=== PATIENT | female | born 1970 ===

== ENCOUNTER 2024-02-08 17:37 | Inpatient (IN) | payer OTHER, SELFPAY ==
--- NOTE | ~2024-02-08 | US_ITS ---
EXAMINATION: US ABDOMEN LIMITED CLINICAL INFORMATION: Right upper quadrant pain. COMPARISON: None available. TECHNIQUE: Real-time imaging of the right upper quadrant abdominal viscera. FINDINGS: PANCREAS: Normal. LIVER: There is a small complex 2.0 cm cyst in the right lobe of the liver just beneath the hemidiaphragm. The liver is normal in size. The liver contour is normal. Parenchymal echogenicity is normal. No concerning solid focal hepatic lesion. There is no intrahepatic biliary duct dilatation seen. GALLBLADDER: The gallbladder is distended measuring over 10.4 cm in length. There is no evidence of stones, sludge, polyps, wall thickening or pericholecystic fluid. Anne's sign is positive. COMMON BILE DUCT: Normal in caliber measuring 0.3 cm in diameter. RIGHT KIDNEY: Normal. No hydronephrosis. No renal calculi or focal parenchymal lesions. The kidney measures 10.7 cm in maximum dimension. FREE FLUID: None. US/US abdomen limited IMPRESSION: Distended gallbladder with positive Anne's sign. No stones are seen. If acalculous cholecystitis is suspected, a HIDA scan may be useful for further evaluation.
[2024-02-08 17:52] VITALS: BP 152/71; PULSE 68; RESP 20; TEMP 37; O2SAT 98; BMI 26.0
--- NOTE | 2024-02-08 17:52 | ED_ITS ---
HPI - General Adult General Chief complaint: Abdominal Pain Stated complaint: abdominal & back pain Time Seen by Provider: 02/08/24 18:28 Source: patient, RN notes reviewed and old records reviewed Mode of arrival: ambulatory Limitations: no limitations History of Present Illness ED Provider: Camden PANDYA narrative: 53-year-old female presents for evaluation of right upper quadrant abdominal pain. Patient reports that she had mild abdominal pain last night Her pain worsened this morning and prior to coming in was 10/10, sharp, stabbing The pain radiates around to her back. She is associated nausea and vomiting. Denies any fevers, chills, cough, shortness of breath pain Denies any lower abdominal pain burning with urination or blood in the urine Patient denies any history abdominal surgery Related Data Allergies Allergy/AdvReac Type Severity Reaction Status Date / Time shellfish derived AdvReac Vomiting Verified 02/08/24 17:55 Review of Systems 2 Constitutional: Constitutional: Denies body ache(s), Denies chills and Denies fever(s) ENT: Denies sore throat Cardiovascular: Cardiovascular: Denies chest pain and Denies dyspnea Respiratory: Respiratory: Denies cough and Denies dyspnea Gastrointestinal: Gastrointestinal: Reports abdominal pain, Reports nausea and Reports vomiting Genitourinary: Genitourinary: Denies hematuria, Denies urinary frequency and Denies difficulty voiding Musculoskeletal: Musculoskeletal: Reports back pain Integumentary/Breasts: Skin/Breast: Denies rash PMFSH Social History Social History Advance Directives: No Advance Directives Information Provided: Yes Do you have a plan to hurt others: No Plan Physical Exam ED Vital Signs: Vital Signs - 24 hr 02/08/24 17:52 02/08/24 19:20 Temperature 98.6 F 98.6 F Pulse Rate 68 Respiratory Rate 20 18 Blood Pressure 152/71 H 135/69 Pulse Oximetry 98 98 Oxygen Delivery Method Room Air Room Air BMI result Body Mass Index 26.0 Const General: healthy appearing, comfortable, no acute distress, alert and awake Nutritional Appearance: well nourished Orientation/consciousness: patient oriented x3 HENMT Head: Yes normocephalic and Yes atraumatic Eyes Eyelids: Yes eyelids normal Conjunctivae: conjunctivae normal Sclerae: sclerae normal Corneas: corneas normal Pupils: Equal, round and reactive pupils present EOM: EOMs intact bilaterally Neck Neck: Yes full ROM Resp Effort & Inspection: normal respiratory effort, able to speak in complete sentences and not labored Cardio Rate: regular rate Rhythm: regular rhythm GI Inspection: No distended Palpation (GI): Soft to palpation, not firm, Tenderness to palpation present (GI) in the RUQ, Guarding due to palpation present (GI) (With rebound to the right upper quadrant) in the RUQ and not rigid Skin General skin exam: elasticity normal Neuro General: patient oriented x3 Cranial nerves: Yes Equal, round and reactive pupils present and Yes Bilaterally intact EOM present Cognition (Neuro): normal cognition Extrem Other: Moving all extremities well without any obvious deformities Course Course Course Narrative: This is a rapid medical exam performed by Igor Smith NP: Additional HPI, ROS, PE not included below will be deferred to primary provider. Patient is a 53-year-old female presenting to the ED with complaint of severe RUQ abdominal pain radiating to back since last night, worsening today. Nausea, vomiting and diarrhea. Denies prior abdominal surgeries. Plan: labs, ultrasound Medications Administered Discontinued Medications Generic Name Dose Route Start Last Admin Trade Name Freq PRN Reason Stop Dose Admin Sodium Chloride 1,000 mls @ 999 mls/hr 02/08/24 19:30 02/08/24 19:53 Ns IV 02/08/24 20:30 999 mls/hr .[id number] JEREMY Administration Ketorolac Tromethamine 30 mg 02/08/24 17:54 02/08/24 18:03 Ketorolac Tromethamine 30 Mg/Ml Vial IM 02/08/24 17:55 30 mg ONCE ONE Administration Morphine Sulfate 4 mg 02/08/24 20:23 02/08/24 20:35 Morphine Sulfate 4 Mg/Ml Cartridge IVPUSH 02/08/24 20:24 4 mg ONCE ONE Administration Protocol Ondansetron HCl 4 mg 02/08/24 17:54 02/08/24 18:03 Ondansetron Odt 4 Mg Tab.Rapdis TRANSLINGU 02/08/24 17:55 4 mg ONCE ONE Administration Ondansetron HCl 4 mg 02/08/24 20:23 02/08/24 20:35 Ondansetron Hcl 4 Mg/2 Ml Vial IVPUSH 02/08/24 20:24 4 mg ONCE ONE Administration Medical Decision Making Medical Decision Making MDM Narrative: 53-year-old female presents for evaluation of right upper abdominal pain. She denies any medical history. She denies any previous surgical history. Given her right upper quadrant abdominal pain with radiation to the back, associated nausea vomiting, gallbladder disease versus pancreatitis is favored to be the most likely diagnosis. Plan for labs, ultrasound of the abdomen. We will consider CT scan if the ultrasound is unremarkable. Obstructive uropathy is favored to be less likely at this time as the patient has no symptoms Differential Diagnosis Differential Diagnoses: The differential diagnosis associated with the presentation includes Biliary colic Cholelithiasis Acute cholecystitis Pancreatitis Obstructive uropathy Abdominal pain SBO Bowel perforation Admission/Observation Consideration of admission/observation: Escalation of care including admission/observation considered Consider admission for possible acalculous cholecystitis Consult Healthcare Provider Management of the patient was discussed with: Corporate Law Specialist (Discussed with Dr. Díaz who recommends hospitalist admission) Lab Data [facility] Lab Attestation statement: I reviewed the patient's lab results. No leukocytosis or anemia. Normal platelet count. No electrolyte abnormalities. LFTs within normal limits 02/08/24 18:03 02/08/24 18:02 Labs: Lab Results 02/08/24 02/08/24 Range/Units 18:02 18:03 WBC 8.7 (4.8-10.8) X10*3/uL RBC 4.32 (4.20-5.50) X10*6/uL Hgb 12.9 (12.0-16.0) g/dl Hct 37.8 (37.0-47.0) % MCV 87.5 (80.0-98.0) fL MCH 29.9 (27.0-33.0) pg MCHC 34.1 (31.0-35.0) g/dl RDW 12.4 (11.0-16.0) % Plt Count 172 (160-400) X10*3/uL MPV 11.8 (9.4-12.3) fL Immature Gran % (Auto) 0.3 (0.0-0.4) % Neut % (Auto) 71.4 (45-73) % Lymph % (Auto) 20.1 (20-40) % [place] % (Auto) 6.2 (2-11) % Eos % (Auto) 1.5 (0-4) % Baso % (Auto) 0.5 (0-2) % Lymph # (Auto) 1.7 (1.2-4.9) X10*3/uL [place] # (Auto) 0.5 (0.1-1.2) X10*3/uL Eos # (Auto) 0.1 (0.0-0.4) X10*3/uL Baso # (Auto) 0.0 (0.0-0.2) X10*3/uL Abs Immat Gran (auto) 0.03 (0.00-0.03) X10*3/uL Absolute Neuts (auto) 6.2 (2.0-8.3) x10*3/uL Absolute Nucleated RBC 0.000 (0.0-0.012) X10*3/uL Nucleated RBC % (auto) 0.0 (0.0-0.2) /100WBC Sodium 140 (135-145) mmol/L Potassium 3.5 (3.3-5.1) mmol/L Chloride 106 (96-108) mmol/L Carbon Dioxide 22 (22-29) mmol/L Anion Gap 16 (12-20) BUN 13 (9-16) mg/dL Creatinine 0.75 (0.5-1.4) mg/dL Estim Creat Clear Calc 76.4 Estimated GFR > 60 Random Glucose 126 H (60-115) mg/dL Calcium 9.4 (8.4-10.2) mg/dL Total Bilirubin 0.3 (0.0-1.0) mg/dL AST 15 (5-31) U/L ALT 11 (0-31) U/L Alkaline Phosphatase 69 (39-117) U/L Total Protein 7.4 (6.5-8.0) g/dL Albumin 4.3 (3.5-5.0) g/dL Amylase 48 (28-100) U/L Lipase 25 (8-78) U/L Radiology Impression Discussion of test interpretation with radiology: I have reviewed the radiologist's reading. Radiologist Impression: IMPRESSION: Distended gallbladder with positive Anne's sign. No stones are seen. If acalculous cholecystitis is suspected, a HIDA scan may be useful for further evaluation. Discharge Plan Discharge Clinical Impression: Abdominal pain Patient Disposition: Admitted As Inpatient Print Language: Cameroonian
[2024-02-08] MEDS: Ketorolac Tromethamine 30 MG/ML VIAL IM (18:03)
[2024-02-08] MEDS: Ondansetron ODT 4 MG TAB.RAPDIS TRANSLINGU (18:03)
[2024-02-08 18:13] LABS: MANUAL DIFF FLAG NO
[2024-02-08 18:14] LABS: Basophils Percent Auto 0.5 % (0-2); Eosinophils Absolute Auto 0.1 X10*3/uL (0.0-0.4); Eosinophils Percent Auto 1.5 % (0-4); Hematocrit 37.8 % (37.0-47.0); Hemoglobin 12.9 g/dl (12.0-16.0); Imm Gran Abs Auto 0.03 X10*3/uL (0.00-0.03); Imm Gran Pct Auto 0.3 % (0.0-0.4); Lymphocytes Absolute Auto 1.7 X10*3/uL (1.2-4.9); Lymphocytes Percent Auto 20.1 % (20-40); Mean Corpuscular HGB Conc 34.1 g/dl (31.0-35.0); Mean Corpuscular Hemoglobin 29.9 pg (27.0-33.0); Mean Corpuscular Volume 87.5 fL (80.0-98.0); Mean Platelet Volume 11.8 fL (9.4-12.3); Monocytes Absolute Auto 0.5 X10*3/uL (0.1-1.2); Monocytes Percent Auto 6.2 % (2-11); Neutrophils Absolute Auto 6.2 x10*3/uL (2.0-8.3); Neutrophils Percent Auto 71.4 % (45-73); Platelet Count 172 X10*3/uL (160-400); Red Blood Count 4.32 X10*6/uL (4.20-5.50); Red Cell Distribution Width 12.4 % (11.0-16.0); White Blood Count 8.7 X10*3/uL (4.8-10.8)
[2024-02-08 18:29] LABS: Alanine Aminotransferase 11 U/L (0-31); Albumin Level 4.3 g/dL (3.5-5.0); Alkaline Phosphatase 69 U/L (39-117); Amylase 48 U/L (28-100); Anion Gap 16 (12-20); Aspartate Amino Transferase 15 U/L (5-31); Bilirubin Total 0.3 mg/dL (0.0-1.0); Blood Urea Nitrogen 13 mg/dL (9-16); Calcium 9.4 mg/dL (8.4-10.2); Carbon Dioxide 22 mmol/L (22-29); Chloride 106 mmol/L (96-108); Creatinine Clr Calc Pharmacy 76.4; Estimated Glomerular Filt Rate > 60; Glucose Random 126 mg/dL (60-115); Lipase 25 U/L (8-78); Potassium 3.5 mmol/L (3.3-5.1); Sodium 140 mmol/L (135-145); Total Protein 7.4 g/dL (6.5-8.0)
[2024-02-08 19:20] VITALS: BP 135/69; RESP 18; TEMP 37; O2SAT 98
--- NOTE | 2024-02-08 19:22 | MHC.EDTECH ---
This tech took over care of patient at 1900,hourly rounds and vitals completed,attempted to get a UACC patient is unable to at this time,call ray in reach
[2024-02-08] MEDS: 0.9 % Sodium Chloride 1,000 ML 999 ML IV (19:53)
[2024-02-08] MEDS: Morphine Sulfate 4 MG/ML CARTRIDGE IVPUSH (20:35)
[2024-02-08] MEDS: ondansetron HCL 4 MG/2 ML VIAL IVPUSH (20:35)
[2024-02-08 21:37] VITALS: BP 125/57; PULSE 65; RESP 18; TEMP 37; O2SAT 98
--- NOTE | 2024-02-08 21:40 | MHC.EDTECH ---
Hourly rounds and vitals completed, belongings list completed and copy placed in chart.
--- NOTE | 2024-02-08 21:43 | P.HPHOSP_ITS ---
History of Present Illness Date of Service: 02/08/24 Attending physician on admission: Joseph Patterson Chief Complaint: RUQ pain Mary Ann Ley is a 53 years old woman with no significant past medical history presents to the emergency department complaining of severe right upper quadrant abdominal pain that started today few hours after eating lunch. She described as a stabbing sensation radiating to the back. She stated that pain started last night but it was not severe. Associated symptoms she reported nausea, vomiting and diarrhea. She noted that her urine was dark did not report pain with urination. She denied quantify fever but complained of chills which she attributes to vomiting. Patient denied alcohol abuse (had just one beer around lunch time). Denied tobacco smoking or illicit drug use. She denies history abdominal surgeries. Had a D&C. In the ED, she was found to have normal vital signs. Blood workup including CBC with differential, CMP, lipase and amylase are normal. UA is not available. Abdominal ultrasound showed distended gallbladder with positive Anne's sigh without gallstones. ED tx: NS 1 L bolus, Zofran 4 mg IV Toradol 30 mg IM, morphine 4 mg IV and Zosyn 3.375 g IV Review of Systems 2 Review of Systems: All 12 systems were reviewed and normal except as noted in HPI. PMFSH Social History Advance Directives: No Advance Directives Information Provided: Yes Do you have a plan to hurt others: No Plan Meds Allergies Allergy/AdvReac Type Severity Reaction Status Date / Time shellfish derived AdvReac Vomiting Verified 02/08/24 17:55 Active Medications: Current Medications Acetaminophen (Acetaminophen 325 Mg Tablet) 975 mg PO ONCE PRN PRN Reason: mild pain, headache or fever Piperacillin Sod/Tazobactam (Sod 3.375 gm/ Sodium Chloride) 50 mls @ 100 mls/hr IV Q6H JEREMY Lactated Ringer's (Lr) 1,000 mls @ 80 mls/hr IVCONT .[id number] JEREMY Ketorolac Tromethamine (Ketorolac Tromethamine 15 Mg/Ml Vial) 15 mg IVPUSH Q6H PRN PRN Reason: Pain, Moderate(Pain Scale 4-6) Morphine Sulfate (Morphine Sulfate 4 Mg/Ml Cartridge) 4 mg IVPUSH Q4H PRN; Protocol PRN Reason: Pain, Severe (Pain Scale 7-10) Sodium Chloride (0.9 % Sodium Chloride Flush 3 Ml Syringe) 3 ml IVFLUSH QSHIFT [facility] Physical Exam 2 Vital Signs and Narrative: Vital Signs: Last Vital Signs Temp 98.6 F 02/08/24 21:37 Pulse 65 02/08/24 21:37 Resp 18 02/08/24 21:37 BP 125/57 L 02/08/24 21:37 Pulse Ox 98 02/08/24 21:37 O2 Del Method Room Air 02/08/24 21:37 BMI result Body Mass Index 26.0 Constitutional - Awake and Alert, No apparent distress. Pleasant and cooperative. Afebrile. HEENT - Pupils equally round. Normal sclera. Heart - S1S2, RRR. Lungs - Normal lung expansion, Normal respiratory effort, No respiratory distress, CTA bilaterally Abdomen - Nondistended. Increased bowel sounds. Right upper quadrant tenderness with guarding. No rebound. Extremities - no calf tenderness bilaterally, no swelling Skin - Warm/Dry Neurological - Alert & oriented x3. No focal weakness grossly noted. Normal speech. Psychological - Appropriate affect Results Labs 02/08/24 18:03 02/08/24 18:02 Labs: Laboratory Results - last 24 hr 02/08/24 02/08/24 18:02 18:03 MCV 87.5 MCH 29.9 MCHC 34.1 RDW 12.4 Plt Count 172 MPV 11.8 Immature Gran % (Auto) 0.3 Neut % (Auto) 71.4 Lymph % (Auto) 20.1 [place] % (Auto) 6.2 Eos % (Auto) 1.5 Baso % (Auto) 0.5 Lymph # (Auto) 1.7 [place] # (Auto) 0.5 Eos # (Auto) 0.1 Baso # (Auto) 0.0 Abs Immat Gran (auto) 0.03 Absolute Neuts (auto) 6.2 Absolute Nucleated RBC 0.000 Nucleated RBC % (auto) 0.0 Anion Gap 16 Estim Creat Clear Calc 76.4 Estimated GFR > 60 Random Glucose 126 H Calcium 9.4 Total Bilirubin 0.3 AST 15 ALT 11 Alkaline Phosphatase 69 Total Protein 7.4 Albumin 4.3 Amylase 48 Lipase 25 Imaging Radiologist's Impressions: Impressions Abdomen Ultrasound 02/08/24 18:57 IMPRESSION: Distended gallbladder with positive Anne's sign. No stones are seen. If acalculous cholecystitis is suspected, a HIDA scan may be useful for further evaluation. Assessment and Plan (1) RUQ pain: Status: Acute (2) Biliary colic: Status: Acute Plan Mary Ann Ley is a 53 y/o woman admitted with: * RUQ pain. Likely biliary colic. ?Acalculus cholecystitis. No sepsis/SIRS criteria. Admit to hospitalist service. Keep NPO. Obtain blood cultures X2. Check urinalysis. Start IV fluids. Continue empiric IV antibiotic therapy with Zosyn. Pain control with Toradol IV and/or morphine IV. HIDA scan. Recheck labs in the morning. Surgery consult for further recommendations. Quality Stroke Does the patient have a stroke diagnosis?: No VTE Prior VTE?: No VTE Risk Level:: Medical - low VTE Device Contraindication: Treatment Not Indicated VTE Drug Contraindication: Treatment Not Indicated
--- NOTE | 2024-02-08 22:11 | PC.NURSE ---
blood cultures drawn by phlebotomy at this time. delay in abx administration d/t awaiting lab draw.
[2024-02-08] MEDS: Piperacillin Sodium/Tazobactam 3.375 GM in 0.9 % Sodium Chloride 50 ML IV (22:18)
--- NOTE | 2024-02-08 22:19 | MHC.EDTECH ---
Urine sample obtained and sent to lab.
[2024-02-08 22:35] LABS: Appearance Urine Clear; Color Urine Yellow; Glucose Urine UA Negative (Negative); Leukocyte Esterase Urine Negative (Negative); Nitrite Urine Negative (Negative); Specific Gravity - Urine 1.025 (1.005-1.025); Urine Blood Negative (Negative); Urine Ketones 15 mg/dL (Negative); Urine Protein Negative (Neg-Trace)
[2024-02-09 03:45] VITALS: BP 147/56; PULSE 62; RESP 16; TEMP 36.6; O2SAT 99
--- NOTE | 2024-02-09 04:02 | MHC.EDTECH ---
This tech took over care of patient at 0310,patient ambulated to the bathroom with a steady gait,hourly rounds and vitals completed.
[2024-02-09 05:45] LABS: MANUAL DIFF FLAG NO
[2024-02-09 05:51] LABS: Basophils Percent Auto 0.3 % (0-2); Eosinophils Absolute Auto 0.1 X10*3/uL (0.0-0.4); Eosinophils Percent Auto 1.2 % (0-4); Hematocrit 34.1 % (37.0-47.0); Hemoglobin 11.3 g/dl (12.0-16.0); Imm Gran Abs Auto 0.02 X10*3/uL (0.00-0.03); Imm Gran Pct Auto 0.3 % (0.0-0.4); Lymphocytes Absolute Auto 1.8 X10*3/uL (1.2-4.9); Lymphocytes Percent Auto 29.6 % (20-40); Mean Corpuscular HGB Conc 33.1 g/dl (31.0-35.0); Mean Corpuscular Hemoglobin 29.6 pg (27.0-33.0); Mean Corpuscular Volume 89.3 fL (80.0-98.0); Mean Platelet Volume 12.8 fL (9.4-12.3); Monocytes Absolute Auto 0.4 X10*3/uL (0.1-1.2); Monocytes Percent Auto 6.9 % (2-11); Neutrophils Absolute Auto 3.7 x10*3/uL (2.0-8.3); Neutrophils Percent Auto 61.7 % (45-73); Platelet Count 128 X10*3/uL (160-400); Red Blood Count 3.82 X10*6/uL (4.20-5.50); Red Cell Distribution Width 12.5 % (11.0-16.0); White Blood Count 6.1 X10*3/uL (4.8-10.8)
[2024-02-09 06:11] LABS: Alanine Aminotransferase 12 U/L (0-31); Albumin Level 3.7 g/dL (3.5-5.0); Alkaline Phosphatase 60 U/L (39-117); Anion Gap 10 (12-20); Aspartate Amino Transferase 17 U/L (5-31); Bilirubin Total 0.2 mg/dL (0.0-1.0); Blood Urea Nitrogen 11 mg/dL (9-16); Calcium 8.3 mg/dL (8.4-10.2); Carbon Dioxide 23 mmol/L (22-29); Chloride 109 mmol/L (96-108); Creatinine Clr Calc Pharmacy 88.1; Estimated Glomerular Filt Rate > 60; Glucose Random 99 mg/dL (60-115); Lipase 15 U/L (8-78); Potassium 3.3 mmol/L (3.3-5.1); Sodium 139 mmol/L (135-145); Total Protein 6.2 g/dL (6.5-8.0)
[2024-02-09] MEDS: Piperacillin Sodium/Tazobactam 3.375 GM in 0.9 % Sodium Chloride 50 ML IV (06:19)
--- NOTE | 2024-02-09 06:24 | PC.NURSE ---
pt medicated per mar, denies pain, resting comfortably in bed, call ray within reach.
--- NOTE | 2024-02-09 07:18 | PM.CNGS ---
History of Present Illness Consult details Consult date: 02/09/24 Narrative: Patient is an otherwise healthy 53-year-old female who presents with a proximally 1-2 day history of progressively worsening epigastric/right upper quadrant pain radiating around to her back. Because of progression of symptoms, she presented emergency department for further evaluation. Workup including sonogram demonstrated positive Anne sign but no obvious cholelithiasis. Patient has never had such symptoms before. Otherwise she tolerates a diet and has regular bowel habits. Patient has never been jaundiced before. Chart was reviewed and patient evaluated. On exam today, patient states that she has complete resolution of her symptoms. [facility] Social History Social History Patient Tobacco Use Status: Never used Tobacco Smoked in Last 30 Days: No Use of substances other than those prescribed or required for medical reasons: No Advance Directives: No Advance Directives Information Provided: Yes Do you have a plan to hurt others: No Plan Nutrition Risks: No Nutritional Risk Meds Allergies Allergy/AdvReac Type Severity Reaction Status Date / Time shellfish derived AdvReac Vomiting Verified 02/08/24 17:55 Active Medications: Current Medications Acetaminophen (Acetaminophen 325 Mg Tablet) 975 mg PO Q6H PRN PRN Reason: mild pain, headache or fever Piperacillin Sod/Tazobactam (Sod 3.375 gm/ Sodium Chloride) 50 mls @ 100 mls/hr IV Q6H [facility] Last Admin: 02/09/24 06:19 Dose: 100 mls/hr Lactated Ringer's (Lr) 1,000 mls @ 80 mls/hr IVCONT .[id number] [facility] Ketorolac Tromethamine (Ketorolac Tromethamine 15 Mg/Ml Vial) 15 mg IVPUSH Q6H PRN PRN Reason: Pain, Moderate(Pain Scale 4-6) Morphine Sulfate (Morphine Sulfate 4 Mg/Ml Cartridge) 4 mg IVPUSH Q4H PRN; Protocol PRN Reason: Pain, Severe (Pain Scale 7-10) Ondansetron HCl (Ondansetron Hcl 4 Mg/2 Ml Vial) 4 mg IVPUSH Q6H PRN PRN Reason: Nausea and Vomiting Sodium Chloride (0.9 % Sodium Chloride Flush 3 Ml Syringe) 3 ml IVFLUSH QSHIFT [facility] Last Admin: 02/09/24 00:00 Dose: 3 ml Home Medications ?Medication ?Instructions ?Recorded ?Confirmed ?Last Taken ?Type conj estrogen-medroxyprogesterone 1 tab PO BEDTIME 02/09/24 02/09/24 02/07/24 History 0.45 mg-1.5 mg tablet (Prempro) Physical Exam Vital Signs: Vital Signs: Last Vital Signs Temp 97.9 F 02/09/24 03:45 Pulse 62 02/09/24 03:45 Resp 16 02/09/24 03:45 BP 147/56 H 02/09/24 03:45 Pulse Ox 99 02/09/24 03:45 O2 Del Method Room Air 02/09/24 03:45 BMI result Body Mass Index 26.0 GI: Other: Abdomen mildly corpulent. No evidence of any guarding, rebound, or rigidity. No right upper quadrant tenderness or Anne sign. Results Labs 02/09/24 04:39 02/09/24 04:39 Labs: Abnormal lab results 02/08/24 02/09/24 Range/Units 18:02 04:39 RBC 3.82 L (4.20-5.50) X10*6/uL Hgb 11.3 L (12.0-16.0) g/dl Hct 34.1 L (37.0-47.0) % Plt Count 128 L D (160-400) X10*3/uL MPV 12.8 H (9.4-12.3) fL Chloride 109 H (96-108) mmol/L Anion Gap 10 L (12-20) Random Glucose 126 H (60-115) mg/dL Calcium 8.3 L D (8.4-10.2) mg/dL Total Protein 6.2 L (6.5-8.0) g/dL Short CBC 02/08/24 02/09/24 Range/Units 18:03 04:39 WBC 8.7 6.1 (4.8-10.8) X10*3/uL Hgb 12.9 11.3 L (12.0-16.0) g/dl Hct 37.8 34.1 L (37.0-47.0) % Plt Count 172 128 L D (160-400) X10*3/uL BMP 02/08/24 02/09/24 18:02 04:39 Sodium 140 139 Potassium 3.5 3.3 Chloride 106 109 H Carbon Dioxide 22 23 BUN 13 11 Creatinine 0.75 0.65 Calcium 9.4 8.3 L D Liver Function 02/08/24 02/09/24 Range/Units 18:02 04:39 Total Bilirubin 0.3 0.2 (0.0-1.0) mg/dL AST 15 17 (5-31) U/L ALT 11 12 (0-31) U/L Alkaline Phosphatase 69 60 (39-117) U/L Albumin 4.3 3.7 (3.5-5.0) g/dL Urine 02/08/24 Range/Units 22:16 Urine Color Yellow Urine Appearance Clear Urine pH 7.0 (5.0-9.0) Ur Specific [place] 1.025 (1.005-1.025) Urine Protein Negative (Neg-Trace) mg/dL Urine Glucose (UA) Negative (Negative) mg/dL All other labs normal. Assessment and Plan (1) Biliary colic: Status: Acute (2) RUQ pain: Status: Acute Plan Patient's symptomatology is consistent with biliary colic. Ultrasound may not always demonstrate cholelithiasis. Based on patient is currently being asymptomatic, diet can be advanced and patient can be seen as an outpatient for further evaluation and workup. This was reviewed with the patient and she agrees with the plan. Patient has a HIDA scan scheduled for today. To discuss with hospitalist. Procedures Date of Service Date of Service: 02/09/24
[2024-02-09] MEDS: Lactated Ringers 1,000 ML 80 ML IVCONT (08:03)
[2024-02-09] MEDS: 0.9 % Sodium Chloride Flush 3 ML SYRINGE IVFLUSH ×2 (08:04)
--- NOTE | 2024-02-09 08:40 | PHA.MEDREC ---
Pharmacy Consult ? Medication Reconciliation Pharmacy has completed the medication reconciliation.
--- NOTE | 2024-02-09 09:55 | MHC.CM.PN ---
Addendum entered by Mary Mendez 02/09/24 10:13: HCP COMPLETED AND NOW ON FILE Original Note: PT REPORTS SHE LIVES AT HOME WITH HER AND IS INDEPENDENT WITH CARE SHE HAS NO DME AND NO SERVICES PT WILL COMPLETE A HCP TODAY NAMING HER , JEF, AND SISTER, JASMYN DELCID, HER AGENTS PCP: JULIAN BAL IN [facility] DCP: HOME VIA PRIVATE TRANSPORT
--- NOTE | 2024-02-09 11:08 | PC.NURSE ---
Per MD patient given po food/ fluids , patient tolerated well, reports no pain
--- NOTE | 2024-02-09 11:19 | PM.DS ---
DS: Providers Provider Date of Service: 02/09/24 Date of admission: 02/08/24 21:36 Date of discharge: 02/09/24 Primary care physician: Unknown Physician Consults: 02/08/24 21:39 Consult to General Surgery Routine Consulting Provider: [facility] [place] General Surgeons Reason for consultation: RUQ pain, ?acalculus cholecystitis Has provider been notified: Yes Attending physician on discharge: Fiordaliza Bowers Discharging clinician: Fiordaliza Bowers DS: Diagnosis Discharge Diagnosis (1) Biliary colic: Status: Acute (2) RUQ pain: Status: Acute DS: Summary Hospital Course Hospital Course: 53 years old woman with no significant past medical history presents to the emergency department complaining of severe right upper quadrant abdominal pain that started today few hours after eating lunch. She described as a stabbing sensation radiating to the back. She stated that pain started last night but it was not severe. Associated symptoms she reported nausea, vomiting and diarrhea. She noted that her urine was dark did not report pain with urination. She denied quantify fever but complained of chills which she attributes to vomiting. Patient denied alcohol abuse (had just one beer around lunch time). Denied tobacco smoking or illicit drug use. She denies history abdominal surgeries. Had a D&C. In the ED, she was found to have normal vital signs. Blood workup including CBC with differential, CMP, lipase and amylase are normal. UA is not available. Abdominal ultrasound showed distended gallbladder with positive Anne's sigh without gallstones. ED tx: NS 1 L bolus, Zofran 4 mg IV Toradol 30 mg IM, morphine 4 mg IV and Zosyn 3.375 g IV. Hospital course: Patient was admitted for right upper quadrant pain: No leukocytosis, fever, blood cultures sent and pending, abdominal sono reviewed with surgery(please see us report below in imaging section) patient placed NPO, hydration,iv pain meds ,antibiotics : Patient is currently asymptomatic afterwards with supportive care. No fever or leukocytes or no new symptoms. Discussed with the surgery currently recommended to start diet which she is tolerated well, surgery will follow-up out patiently for workup and further management .defer antibiotics since patient asymptomatic. plan: surgery will follow-up out patiently for workup and further management (for bilary colic). Assessment and plan coordination time spent 40 minute. She understand and in agreement with the above plan. Time Attestation Total time managing care of this patient today: 40 mintues. Discharge Coordination Time (in mins): 40 min Quality: Safe Use of Opioids Does Pt have an Active Cancer Diagnosis on the Problem List?: No Quality: Stroke Does the patient have a stroke diagnosis?: No Physical Exam Vital Signs: Vital Signs: Last Vital Signs Temp 97.9 F 02/09/24 03:45 Pulse 62 02/09/24 03:45 Resp 16 02/09/24 03:45 BP 147/56 H 02/09/24 03:45 Pulse Ox 99 02/09/24 03:45 O2 Del Method Room Air 02/09/24 03:45 BMI result Body Mass Index 26.0 Appearance: Alert.? Oriented X3.? cvs: rrr, [id number] , no murmur res: clear to auscultation ,no rhonchii or wheezing abd: no rebound or guarding ,nt, bs present. ext pulses present , no cyanosis . neuro: axo3 , nonfocal. DS: Data Data Completed and Pending Labs on day of discharge: Laboratory Results - last 24 hr 02/08/24 02/08/24 02/08/24 18:02 18:03 22:16 WBC 8.7 RBC 4.32 Hgb 12.9 Hct 37.8 MCV 87.5 MCH 29.9 MCHC 34.1 RDW 12.4 Plt Count 172 MPV 11.8 Immature Gran % (Auto) 0.3 Neut % (Auto) 71.4 Lymph % (Auto) 20.1 [place] % (Auto) 6.2 Eos % (Auto) 1.5 Baso % (Auto) 0.5 Lymph # (Auto) 1.7 [place] # (Auto) 0.5 Eos # (Auto) 0.1 Baso # (Auto) 0.0 Abs Immat Gran (auto) 0.03 Absolute Neuts (auto) 6.2 Absolute Nucleated RBC 0.000 Nucleated RBC % (auto) 0.0 Sodium 140 Potassium 3.5 Chloride 106 Carbon Dioxide 22 Anion Gap 16 BUN 13 Creatinine 0.75 Estim Creat Clear Calc 76.4 Estimated GFR > 60 Random Glucose 126 H Calcium 9.4 Total Bilirubin 0.3 AST 15 ALT 11 Alkaline Phosphatase 69 Total Protein 7.4 Albumin 4.3 Amylase 48 Lipase 25 Urine Color Yellow Urine Appearance Clear Urine pH 7.0 Ur Specific [place] 1.025 Urine Protein Negative Urine Glucose (UA) Negative Urine Ketones 15 Urine Blood Negative Urine Nitrite Negative Ur Leukocyte Esterase Negative 02/09/24 04:39 WBC 6.1 RBC 3.82 L Hgb 11.3 L Hct 34.1 L MCV 89.3 MCH 29.6 MCHC 33.1 RDW 12.5 Plt Count 128 L D MPV 12.8 H Immature Gran % (Auto) 0.3 Neut % (Auto) 61.7 Lymph % (Auto) 29.6 [place] % (Auto) 6.9 Eos % (Auto) 1.2 Baso % (Auto) 0.3 Lymph # (Auto) 1.8 [place] # (Auto) 0.4 Eos # (Auto) 0.1 Baso # (Auto) 0.0 Abs Immat Gran (auto) 0.02 Absolute Neuts (auto) 3.7 Absolute Nucleated RBC 0.000 Nucleated RBC % (auto) 0.0 Sodium 139 Potassium 3.3 Chloride 109 H Carbon Dioxide 23 Anion Gap 10 L BUN 11 Creatinine 0.65 Estim Creat Clear Calc 88.1 Estimated GFR > 60 Random Glucose 99 Calcium 8.3 L D Total Bilirubin 0.2 AST 17 ALT 12 Alkaline Phosphatase 60 Total Protein 6.2 L Albumin 3.7 Amylase Lipase 15 Urine Color Urine Appearance Urine pH Ur Specific [place] Urine Protein Urine Glucose (UA) Urine Ketones Urine Blood Urine Nitrite Ur Leukocyte Esterase Imaging Chest x-ray: Radiologist's impression: ITS Impressions Abdomen Ultrasound 02/08/24 18:57 IMPRESSION: Distended gallbladder with positive Anne's sign. No stones are seen. If acalculous cholecystitis is suspected, a HIDA scan may be useful for further evaluation. Discharge Plan Discharge Anticipated Discharge Date/Time: 02/09/24 11:07 Patient Disposition: Home, Self-Care Discharge Diagnosis: possible biliary colic Referrals: Larry Perales MD [Physician] - 1 Week Physician,Unknown J [Primary Care Provider] - 1 Week Discharge Medications: Continued Prempro 0.45-1.5 mg tablet 1 tab PO BEDTIME Discharge Orders: Discharge Order (Routine); Ordered 02/09/24 Ordered By: Fiordaliza Bowers Diet: Advance to usual diet Activity on Discharge: As tolerated Stand Alone Forms: Patient Portal Discharge page Print Language: Telugu Care Plan Goals: Patient was admitted for right upper quadrant pain: No leukocytosis, fever, abdominal sono reviewed, patient placed NPO, hydration: Patient is currently asymptomatic afterwards with supportive care. No fever or leukocytosis or no new symptoms. Discussed with the surgery currently recommended to start diet which she is tolerated well, surgery will follow-up out patiently for workup and further management . Health Concerns: As above. Plan of Treatment: As above. Assessment: As above.
== END 2024-02-09 11:27 | disposition home or self-care (01) ==
LOC: HO.ED 21:26 → HO.EDOVER 21:47
PROVIDERS: Registered Nurse Emergency; Admitting Provider Internal Medicine; Emergency Provider Internal Medicine; PCP Internal Medicine; Visit Provider Internal Medicine
DX: K80.50 Calculus of bile duct without cholangitis or cholecystitis without obstruction (principal)
CPT/HCPCS: 36415; 76705; 80053; 81003; 82150; 83690; 85025; 87040; 99221; 99285; J1885; J2270; J2405; J2543; J7120

== ENCOUNTER → 2024-02-08 21:36 | Outpatient (BNV) | payer OTHER, SELFPAY | PROVIDERS: Admitting Provider Internal Medicine; Emergency Provider Internal Medicine; Visit Provider Internal Medicine | DX: K80.50 Calculus of bile duct without cholangitis or cholecystitis without obstruction (principal); R10.11 Right upper quadrant pain | CPT/HCPCS: 99222; 99239 ==

== ENCOUNTER → 2024-02-08 21:36 | Outpatient (BNV) | payer OTHER, SELFPAY | PROVIDERS: Admitting Provider Internal Medicine; Emergency Provider Internal Medicine; Visit Provider Surgery | DX: K80.50 Calculus of bile duct without cholangitis or cholecystitis without obstruction (principal); R10.11 Right upper quadrant pain | CPT/HCPCS: 99222 ==

== ENCOUNTER 2024-02-15 10:33 | Outpatient (AMB) | payer OTHER, SELFPAY ==
--- NOTE | 2024-02-15 10:34 | A.OFFVIS_ITS ---
Vital Signs 02/15/24 10:40 Height 5 ft 2 in Weight 140 lb BMI 25.6 BP 120/68 Blood Pressure Location Rt brachial Position Sitting Pulse 65 Intake Visit Reasons: Calculus of Gallbladder Intake Note: Patient referred after ER visit on 02-08-24. Patient seen for RUQ pain. Patient c/o: reports recent abd pain was first episode that worsened after eating lunch. Shop Helper Required: No Accompanied by: Self / Same As Patient Allergies shellfish derived Adverse Reaction (Verified 02/15/24 10:38) Vomiting HPI Comments Details: Patient had a recent ER visit for and about biliary colic. She was actually seen by me at that time and consult note dictated. She has had no recurrence of her symptoms but is concerned about a recurrent episode of this and would like to discuss laparoscopic possible open cholecystectomy. As noted above, full consult note dictated on ER visit. Chart was reviewed and patient evaluated [facility] Social History Patient Tobacco Use Status: Never used Tobacco service: No Physical Exam Vital Signs: Last Vital Signs Pulse 65 02/15/24 10:40 BP 120/68 02/15/24 10:40 BMI result Body Mass Index 25.6 Eyes Other: Anicteric Chest Other: Chest breath sounds bilaterally, HS 1 in 2 GI Other: Abdomen mildly corpulent, soft, benign Assessment & Plan Assessment & Plan (1) Biliary colic: Code(s): K80.50 - Calculus of bile duct without cholangitis or cholecystitis without obstruction Category: Surgical Plan Risks, benefits, and alternatives laparoscopic possible open cholecystectomy reviewed the patient included but not limited to bleeding, infection, recurrence of symptoms, numbness, pain, scarring, bowel or bile duct injury or leak and the patient wishes to proceed. All questions answered. Arrangements were made for this. Coding Level of Care Code Est Pt Level 5 (06008) Diagnoses Biliary colic K80.50
[2024-02-15 10:40] VITALS: BP 120/68; PULSE 65; BMI 25.6
== END 2024-02-15 10:59 | disposition home or self-care (01) ==
PROVIDERS: Visit Provider Surgery
DX: K80.50 Calculus of bile duct without cholangitis or cholecystitis without obstruction (principal)
CPT/HCPCS: 99214

== ENCOUNTER → 2024-02-15 10:33 | Outpatient (BNVA) | payer OTHER, SELFPAY | PROVIDERS: Visit Provider Surgery ==

== ENCOUNTER 2024-04-07 05:44 | Day surgery (SDC) | payer OTHER, SELFPAY ==
[2024-04-04 15:06] VITALS: BMI 25.6
--- NOTE | 2024-04-06 09:27 | HO.ANESPROP2 ---
Documented by User: Gloria Ward NP 04/06/24 09:29 HPI - Anesthesia Eval Consult details Narrative: 53yo F for Cholecystectomy Laparoscopic,possible open PMFSH Active Problems Active Problems: All Active Problems Biliary colic (Acute) RUQ pain (Acute) Abdominal pain (Acute) Past Medical History Medical History (Updated 04/04/24 @ 15:05 by Rohini Chopra RN) Anemia Calculus of gallbladder Surgical History Surgical History (Updated 04/04/24 @ 15:05 by Rohini Chopra RN) History of esophagogastroduodenoscopy (EGD) H/O colonoscopy History of endometrial ablation Social History Social History Are you a primary hearing healthcare practitioner to a significant other at home: No Do you presently have visiting nurse or other home services: No Patient Tobacco Use Status: Never used Tobacco Use of substances other than those prescribed or required for medical reasons: No Have you been hit, kicked, punched, or otherwise hurt by someone within the past year? If so, by whom?: No Are you DNR?: No Advance Directives Information Provided: Yes (as above noted) Advance Directives on File: No Recently lost weight without trying: No Eating poorly because of decreased appetite: No Nutrition Risks: No Nutritional Risk Patient : No FDLMP: N/A : No Poor oral hygiene: No service: No Meds Allergies Allergy/AdvReac Type Severity Reaction Status Date / Time shellfish derived Allergy Severe Vomiting Verified 04/07/24 06:08 lactose Allergy Intermediate Gastrointestinal Verified 04/07/24 06:08 Upset Home Medications ?Medication ?Instructions ?Recorded ?Confirmed ?Last Taken ?Type conj estrogen-medroxyprogesterone 1 tab PO BEDTIME hot flashes 02/09/24 04/04/24 02/07/24 History 0.45 mg-1.5 mg tablet (Prempro) Exam Height,Weight and Vital Signs: Height 5 ft 2 in Weight 63.503 kg Pertinent Lab Results Pertinent Lab Results: Laboratory Tests 02/09/24 04:39 WBC 6.1 Hgb 11.3 L Hct 34.1 L Plt Count 128 L D Sodium 139 Potassium 3.3 Chloride 109 H Carbon Dioxide 23 BUN 11 Creatinine 0.65 Assessment and Plan Assessment Anesthesia Assessment: Chart Reviewed Documented by User: Samina Zelaya MD 04/07/24 07:22 [facility] Past Medical History Medical History (Updated 04/04/24 @ 15:05 by Rohini Chopra RN) Anemia Calculus of gallbladder Family History Family history of problems with anesthesia: No Surgical History Surgical History (Updated 04/04/24 @ 15:05 by Rohini Chopra RN) History of esophagogastroduodenoscopy (EGD) H/O colonoscopy History of endometrial ablation History of Problems with Anesthesia: No Social History Social History Are you a primary hearing healthcare practitioner to a significant other at home: No Do you presently have visiting nurse or other home services: No Patient Tobacco Use Status: Never used Tobacco Use of substances other than those prescribed or required for medical reasons: No Have you been hit, kicked, punched, or otherwise hurt by someone within the past year? If so, by whom?: No Are you DNR?: No Advance Directives Information Provided: Yes (as above noted) Advance Directives on File: No Recently lost weight without trying: No Eating poorly because of decreased appetite: No Nutrition Risks: No Nutritional Risk Patient : No FDLMP: N/A : No Poor oral hygiene: No service: No Meds Allergies Allergy/AdvReac Type Severity Reaction Status Date / Time shellfish derived Allergy Severe Vomiting Verified 04/07/24 06:08 lactose Allergy Intermediate Gastrointestinal Verified 04/07/24 06:08 Upset Home Medications ?Medication ?Instructions ?Recorded ?Confirmed ?Last Taken ?Type conj estrogen-medroxyprogesterone 1 tab PO BEDTIME hot flashes 02/09/24 04/04/24 02/07/24 History 0.45 mg-1.5 mg tablet (Prempro) Exam Airway Mallampati Class: I TM Dist: >3cm Neck ROM: Full Assessment and Plan Assessment Anesthesia Assessment: Anesthesia Plan Discussed Final Anesthetic Review Family History of Problems with Anesthesia: No History of Problems with Anesthesia: No NPO: Yes ASA Class: I Final Preanesthetic Review: No Changes in Pt Med Stat, Meds/Allgs Chart Reviewed, Consent Obtained/Reviewed and Anes Risks/Benef Reviewed Patient Risk: Low Procedure Risk: Intermediate Anesthetic Plan Anesthetic Plan: GA Disposition: Standard PACU
--- NOTE | 2024-04-06 09:40 | MHC.SHP ---
Pre-Procedural Eval Section A - 24 Hr Update-Section A only Date of Service: 04/07/24 The patient is an INPATIENT: No Changes since office visit: No Cold of Flu in the past 2 weeks, No New Medical Problems, No Changes in Medication and No Patient answered all questions Section B - Complete if H&P > 30 days Chief Complaint: Calculus of bile duct without cholangitis Allergies: Allergies Allergy/AdvReac Type Severity Reaction Status Date / Time shellfish derived Allergy Severe Vomiting Verified 04/04/24 15:05 lactose Allergy Intermediate Gastrointestinal Verified 04/04/24 15:05 Upset Plan I have reviewed the history and physical and performed a pertinent physical examination on my patient. No changes have occurred unless specified. Time Spent With Patient Time: Total time managing care of this patient today ____ minutes.
[2024-04-07] VITALS (10 sets, daily range): BP systolic 111–152; BP diastolic 68–87; PULSE 66–78; RESP 14–18; TEMP 36.2–36.7; O2SAT 95–100; BMI 24.7
[2024-04-07] MEDS: Lactated Ringers 1,000 ML 100 ML IVCONT (06:26)
--- NOTE | 2024-04-07 07:26 | MHC.SHP ---
Pre-Procedural Eval Section A - 24 Hr Update-Section A only Date of Service: 04/07/24 The patient is an INPATIENT: No Changes since office visit: No Cold of Flu in the past 2 weeks, No New Medical Problems, No Changes in Medication and No Patient answered all questions The patient has been examined within 24 hours of the surgical procedure. The History & Physical has been completed within 30 days and I have reviewed it.: Yes Section B - Complete if H&P > 30 days Chief Complaint: Calculus of bile duct without cholangitis Allergies: Allergies Allergy/AdvReac Type Severity Reaction Status Date / Time shellfish derived Allergy Severe Vomiting Verified 04/07/24 06:08 lactose Allergy Intermediate Gastrointestinal Verified 04/07/24 06:08 Upset Review of Systems Sugical H&P ROS: Negative: Constitution, Cardiovascular, Respiratory, Neurological, Psychiatric, Hem-Onc, Allergic/Immunologic, Gastrointestinal, Genitourinary, Musculoskeletal, Integumentary, Endocrine and Eyes/Ears/Nose/Throat Exam Surgical H&P Exam: Normal: HEENT, Normal: Heart, Normal: Lungs, Normal: Extremities, Normal: Abdomen, Normal: Skin and Normal: Neurological Plan I have reviewed the history and physical and performed a pertinent physical examination on my patient. No changes have occurred unless specified. Time Spent With Patient Time: Total time managing care of this patient today ____ minutes.
--- NOTE | 2024-04-07 08:22 | P.OP_ITS ---
Operative Note Operative Note Date of Service: 04/07/24 Narrative: Preoperative diagnosis: [] Symptomatic gallbladder Postop diagnosis: [] The same Procedure [] laparoscopic cholecystectomy Surgeon: [] [employer] Engineering Manager: [] Ben Type of Anesthesia: [] General Indication for surgery: [] Gallbladder with omental adhesions to it. Moderately intrahepatic gallbladder. Findings: [] Patient brought to the operating room, placed on operative table supine position, after an adequate level of general anesthesia was induced, the patient's abdomen was prepped and draped in usual sterile fashion. Using an infraumbilical curvilinear incision, Medrano technique was used to insufflate abdominal cavity to 15 mm of CO2. Upper midline and right subcostal ports were placed under direct laparoscopic view, and the patient placed in reverse Trendelenburg position, and tilted to the left. Findings were as noted above. Gallbladder was grasped using laparoscopic graspers and retracted superiorly and laterally. Soft omental adhesions were swept off the gallbladder with the hilu m was approached. Cystic artery and cystic duct were each identified, circumferentially skeletonized, traced directly into the gallbladder, and critical view obtained. Each was clipped proximally x2, distally x1, and transected gallbladder which was moderately intrahepatic was then cauterized from the gallbladder fossa using Bovie. Specimen placed in an Endo-Catch bag, a retrieved through the umbilical port. Abdominal cavity was copiously irrigated and secured hemostasis. All ports removed under direct laparoscopic view. Wounds were closed in the following manner; umbilical wound is fascia reapproximated using interrupted 0 Vicryl sutures. Skin wounds were closed using subcuticular 4-0 Vicryl sutures followed by Steri-Strips and sterile dressings. Wounds were infiltrated 0.5% Marcaine at completion. Sponge, needle, and instrument counts reported correct. Patient tolerated the procedure well and emerged from anesthesia stable condition. EBL minimal
[2024-04-07] MEDS: fentaNYL citrate/PF 100 MCG/2 ML VIAL 50 MCG IVPUSH (08:46)
[2024-04-07] MEDS: fentaNYL citrate/PF 100 MCG/2 ML VIAL 25 MCG IVPUSH (09:06)
== END 2024-04-07 09:57 | disposition home or self-care (01) ==
PROVIDERS: PCP Internal Medicine; Visit Provider Surgery
PROC: 0FT44ZZ Resection of Gallbladder, Percutaneous Endoscopic Approach (ICD-10-PCS; CPT 47562; principal; 2024-04-07 07:30)
DX: K80.10 Calculus of gallbladder with chronic cholecystitis without obstruction (principal); K82.8 Other specified diseases of gallbladder; Q44.1 Other congenital malformations of gallbladder; Z79.899 Other long term (current) drug therapy
CPT/HCPCS: 47562; 88304; J0131; J0690; J1100; J2250; J2405; J2704; J2795; J3010

== ENCOUNTER → 2024-04-07 05:44 | Outpatient (BNV) | payer OTHER, SELFPAY | PROVIDERS: PCP Internal Medicine; Visit Provider Surgery | DX: K80.50 Calculus of bile duct without cholangitis or cholecystitis without obstruction (principal) | CPT/HCPCS: 47562 ==

== ENCOUNTER 2024-04-18 08:58 | Outpatient (AMB) | payer OTHER, SELFPAY ==
--- NOTE | 2024-04-18 09:00 | A.OFFVIS_ITS ---
Intake Visit Reasons: s/p Lap lea Intake Note: Patient is seen in office for post op assessment post laparoscopic cholecystectomy. Pt c/o: no concerns. Reports incisions healing well. N o longer taking rx pain meds. OP: 04/04/24 Sales Representative Education Courses Required: No Accompanied by: Self / Same As Patient Allergies shellfish derived Allergy (Severe, Verified 04/18/24 09:02) Vomiting lactose Allergy (Intermediate, Verified 04/18/24 09:02) Gastrointestinal Upset HPI Comments Details: Patient presents for follow-up. She has no wound issues or complaints. She is tolerating a diet. Having regular bowel habits. She is increasing her activity level. [facility] Medical History (Updated 04/04/24 @ 15:05 by Rohini Chopra RN) Anemia Calculus of gallbladder Surgical History (Updated 04/18/24 @ 09:10 by Larry Perales MD) Hx laparoscopic cholecystectomy (04/04/24) History of esophagogastroduodenoscopy (EGD) H/O colonoscopy History of endometrial ablation Social History Are you a primary healthcare social worker to a significant other at home: No Do you presently have visiting nurse or other home services: No Patient Tobacco Use Status: Never used Tobacco service: No Physical Exam Eyes Other: Anicteric GI Other: Abdomen is soft. All wounds clean dry and intact Assessment & Plan Assessment & Plan (1) Status post laparoscopic cholecystectomy: Code(s): Z90.49 - Acquired absence of other specified parts of digestive tract Category: Medical Plan Patient was doing well. She has been given local instructions and will otherwise follow-up p.r.n.. All questions answered. Coding Level of Care Code Global (69077) Diagnoses Status post laparoscopic cholecystectomy Z90.49
== END 2024-04-18 09:06 | disposition home or self-care (01) ==
PROVIDERS: Visit Provider Surgery
DX: Z90.49 Acquired absence of other specified parts of digestive tract (principal)
CPT/HCPCS: 99024

== ENCOUNTER → 2024-04-18 08:58 | Outpatient (BNVA) | payer OTHER, SELFPAY | PROVIDERS: Visit Provider Surgery ==

== ENCOUNTER 2024-10-15 13:36 | Observation (INO) | payer OTHER, SELFPAY ==
[2024-10-15] VITALS (7 sets, daily range): BP systolic 124–162; BP diastolic 63–90; PULSE 62–76; RESP 16–18; TEMP 36.6–37.1; O2SAT 96–98; BMI 25.4
--- NOTE | ~2024-10-15 | CT_ITS ---
CLINICAL HISTORY: head strike CT head without contrast Comparison: None Findings: No intra-axial mass, midline shift, hydrocephalus, or acute hemorrhage. No significant atrophy-like change or white matter disease. There is no sinus or mastoid fluid. The orbits are within normal limits. There is no acute fracture. IMPRESSION: 1. No acute intracranial findings. This document has been electronically signed by: Sourav Lane MD on 10/15/2024 16:20:59
--- NOTE | ~2024-10-15 | CT_ITS ---
CLINICAL HISTORY: head strike CT cervical spine without contrast Comparison: None Findings: Normal vertebral body alignment. There is mild degenerative change. No acute fractures or dislocations. No acute findings on limited view of the intracranial contents. Soft tissues of the neck are normal. Lung apices are clear. IMPRESSION: No acute findings. This document has been electronically signed by: Sourav Lane MD on 10/15/2024 16:19:27
--- NOTE | ~2024-10-15 | MR_ITS ---
CLINICAL HISTORY: Head strike with LOC MR Brain without gadolinium Comparison: None Findings: No restricted diffusion. No intracranial mass or hemorrhage. No midline shift. No hydrocephalus. Vascular flow voids are intact. Orbital contents are unremarkable. The sinuses and mastoid air cells are clear. No focal bone lesion. IMPRESSION: No acute findings. This document has been electronically signed by: Tyshawn Hoover MD on 10/16/2024 11:23:43
--- NOTE | ~2024-10-15 | XR_ITS ---
CLINICAL HISTORY: pain s p fall 3 view, pelvis and right hip Comparison: None Findings: The bones are intact. No significant arthritic change. The soft tissues are unremarkable. IMPRESSION: No acute findings. This document has been electronically signed by: Sourav Lane MD on 10/15/2024 18:09:25
--- NOTE | 2024-10-15 14:47 | ED.FALL ---
HPI - Fall General Chief Complaint: Fall Stated Complaint: FALL HEAD PAIN Time Seen by Provider: 10/15/24 14:35 Source: patient, EMS and RN notes reviewed Mode of arrival: EMS Limitations: no limitations History of Present Illness ED Provider: Sandra Castro PA-C HPI Narrative: This is a 53-year-old female who presents emergency department after a slip and fall on ice. Patient states that she was walking and accidentally slipped on ice and fell backwards striking her posterior head. She does report LOC, daughter at bedside reports that she believes that it was for approximately 1 minute, she states that she went to the scene of the incident soon after and patient was already alert. Patient reports that she has had headaches, nausea and dizziness since. She is not on anticoagulation. No other complaints or concerns at this time. MD complaint: fall Onset (ago): day(s) Fall from: standing Fall witnessed: no Place fall occurred: home Loss of consciousness: yes Length of LOC: minutes(s) Symptoms prior to fall: none Context: tripped/slipped Location of injury: head Severity: moderate Quality: aching Associated symptoms (after fall): headache, neck pain and vertigo Related Data Home Medications ?Medication ?Instructions ?Recorded ?Confirmed conj estrogen-medroxyprogesterone 1 tab PO BEDTIME hot flashes 02/09/24 10/15/24 0.45 mg-1.5 mg tablet (Prempro) Allergies Allergy/AdvReac Type Severity Reaction Status Date / Time shellfish derived Allergy Severe Vomiting Verified 10/15/24 13:50 lactose Allergy Intermediate Gastrointestinal Verified 10/15/24 13:50 Upset Review of Systems Review of Systems: Yes all other systems are reviewed and are negative Constitutional: Constitutional: Reports as per HPI [facility] Past Medical History Medical History Anemia Calculus of gallbladder Surgical History Hx laparoscopic cholecystectomy (04/04/24) History of esophagogastroduodenoscopy (EGD) H/O colonoscopy History of endometrial ablation Social History Social History Are you a primary continuum of care manager to a significant other at home: No Do you presently have visiting nurse or other home services: No Patient Tobacco Use Status: Never used Tobacco service: No Physical Exam Vital Signs: Vital Signs: Last Vital Signs Temp 98.8 F 10/15/24 19:36 Pulse 67 10/15/24 19:36 Resp 18 10/15/24 19:36 BP 124/63 10/15/24 19:36 Pulse Ox 97 10/15/24 19:36 O2 Del Method Room Air 10/15/24 19:36 BMI result Body Mass Index 25.4 Const: General: cooperative, comfortable and no acute distress Orientation/consciousness: patient oriented x3 Limitations: no limitations HEENT: Other: Tenderness palpation along the posterior occiput. Head: Yes normal to inspection, Yes normocephalic and Yes atraumatic Ears: hearing grossly normal bilaterally General nose exam: Normal external nose present Face and sinus: Yes normal facial exam Mouth: Normal oral and palatal mucosa present, oropharynx normal and moist mucous membranes Throat: Yes posterior oropharynx normal Eyes: General: appearance normal, both eyes and all related structures Eyelids: Yes eyelids normal Conjunctivae: conjunctivae normal Sclerae: sclerae normal Pupils: Equal, round and reactive pupils present EOM: EOMs intact bilaterally Neck: Neck: Yes normal visual inspection, Yes full ROM and Yes no lymphadenopathy Lymphatic: no lymphadenopathy noted Chest: Chest palpation & inspection: normal inspection of the chest Resp: Effort & Inspection: normal respiratory effort and able to speak in complete sentences Auscultation: clear to auscultation bilaterally, no crackles, no rales, no rhonchi and no wheezes Cardio: Rate: regular rate Rhythm: regular rhythm Heart sounds: S1 normal heart sound present and S2 normal heart sound present GI: Inspection: Yes normal to inspection Back/Spine/Pelvis: Other: Mild tenderness palpation along the right SI joint Skin: General skin exam: no rashes or lesions noted Trauma: no lacerations or abrasions Wounds: no wounds Neuro: General: patient oriented x3, moves all extremities and Unable to assess gait (Patient to dizzy to assess gait.) Cranial nerves: Yes CN's II-XII intact bilaterally and Yes Equal, round and reactive pupils present Cognition (Neuro): normal cognition Gait exam (Neuro): Unable to assess gait (Patient to dizzy to assess gait.) Motor exam (neuro): 5/5 motor strength present throughout, Pronator motor function not present and no tremor noted Extrem: General: Yes normal to inspection Right upper extremity: normal to inspection Left upper extremity: normal to inspection Right lower extremity: normal to inspection Left lower extremity: normal to inspection NIH Stroke Scale Internal: Initial- Upon Arrival Level of Consciousness: Alert Level of Consciousness Questions: Answers both questions correctly Level of Consciousness Commands: Performs both tasks correctly Best Gaze: Normal Visual: No visual loss Facial Palsy: Normal Motor Arm (Right): No drift Motor Arm (Left): No drift Motor Leg (Right): No drift Motor Leg (Left): No drift Limb Ataxia: Absent Sensory: Normal Best Language: No aphasia Dysarthia: Normal Extinction and Inattention: No abnormality Score: 0 Course Reevaluation(s) Reevaluation #1: Patient attempted to walk to the restroom, reporting pain in her hip as well as difficulty with ambulating secondary to dizziness. Patient's dizziness has improved however still remains to be profoundly dizzy, unable to walk secondary to dizziness. I called the radiologist and spoke to the radiologist to review images, no acute intracranial hemorrhage identified. There was a question on slight increased attenuation when I reviewed the images, therefore spoke to radiologist and he confirmed that this is not seen and that the head CT has no acute abnormalities and that this is artifact. No evidence of intracranial bleeding. Discussed overall workup with my attending physician, Dr. Drummond. Given dizziness status post head strike with LOC, patient should be admitted for monitoring and observation. Discussed case with Dr. Pepper, transfer of care initiated. Time: 16:59 Medications Administered Generic Name Dose Route Start Last Admin Trade Name Freq PRN Reason Stop Dose Admin Oxycodone HCl 5 mg 10/15/24 17:48 10/15/24 19:45 Oxycodone Hcl Immed Release 5 Mg Tablet PO 5 mg Q6H PRN Administration Pain, Moderate(Pain Scale 4-6) Sodium Chloride 3 ml 10/16/24 00:00 10/15/24 19:46 0.9 % Sodium Chloride Flush 3 Ml Syringe IVFLUSH 3 ml QSHIFT [facility] Administration Discontinued Medications Generic Name Dose Route Start Last Admin Trade Name Freq PRN Reason Stop Dose Admin Ondansetron HCl 4 mg 10/15/24 14:44 10/15/24 15:06 Ondansetron Odt 4 Mg Tab.Rapdis TRANSLINGU 10/15/24 14:45 4 mg ONCE ONE Administration Medical Decision Making Medical Decision Making [facility] Narrative: This is a 53-year-old female, with no known medical problems, who presents emergency department with complaints of headache dizziness, nausea status post slip and fall on ice, with head strike and positive LOC. She is not on anticoagulation. During my initial assessment, she is alert and oriented x4. She does endorse dizziness, worsening with extraocular movements. She has good strength in her upper and lower extremities. She received Zofran prior to her arrival. C-spine nontender. Patient with posterior hematoma noted. She was profoundly dizzy, patient unable to get off the stretcher secondary to dizziness. She reports dizziness with extraocular movements, however they are all intact. She has an NIH score of 0. No neurologic focal deficits on examination. Unable to perform Romberg secondary to patient unable to get off stretcher. Plan: CT head and neck Differential Diagnosis Differential Diagnoses: The differential diagnosis associated with the presentation includes SDH, SDH, C-spine fracture, contusion, hematoma Lab Data [facility] Lab Attestation statement: I reviewed the patient's lab results. No leukocytosis, stable H&H, chemistry within normal range. 10/15/24 15:12 10/15/24 15:12 Labs: Lab Results 10/15/24 Range/Units 15:12 WBC 6.4 (4.8-10.8) X10*3/uL RBC 4.53 (4.20-5.50) X10*6/uL Hgb 13.4 (12.0-16.0) g/dl Hct 40.3 (37.0-47.0) % MCV 89.0 (80.0-98.0) fL MCH 29.6 (27.0-33.0) pg MCHC 33.3 (31.0-35.0) g/dl RDW 11.9 (11.0-16.0) % Plt Count 179 D (160-400) X10*3/uL MPV 11.6 (9.4-12.3) fL Immature Gran % (Auto) 0.5 H (0.0-0.4) % Neut % (Auto) 71.3 (45-73) % Lymph % (Auto) 20.7 (20-40) % [place] % (Auto) 6.2 (2-11) % Eos % (Auto) 0.8 (0-4) % Baso % (Auto) 0.5 (0-2) % Lymph # (Auto) 1.3 (1.2-4.9) X10*3/uL [place] # (Auto) 0.4 (0.1-1.2) X10*3/uL Eos # (Auto) 0.1 (0.0-0.4) X10*3/uL Baso # (Auto) 0.0 (0.0-0.2) X10*3/uL Abs Immat Gran (auto) 0.03 (0.00-0.03) X10*3/uL Absolute Neuts (auto) 4.6 (2.0-8.3) x10*3/uL Absolute Nucleated RBC 0.000 (0.0-0.012) X10*3/uL Nucleated RBC % (auto) 0.0 (0.0-0.2) /100WBC PT 11.4 (10.9-12.4) SEC INR 1.0 (0.9-1.1) Sodium 139 (135-145) mmol/L Potassium 4.0 D (3.3-5.1) mmol/L Chloride 104 (96-108) mmol/L Carbon Dioxide 25 (22-29) mmol/L Anion Gap 14 (12-20) BUN 15 (9-16) mg/dL Creatinine 0.71 (0.5-1.4) mg/dL Estim Creat Clear Calc 79.8 Estimated GFR > 60 Random Glucose 99 (60-115) mg/dL Calcium 9.3 D (8.4-10.2) mg/dL Total Bilirubin 0.4 (0.0-1.0) mg/dL AST 22 (5-31) U/L ALT 18 (0-31) U/L Alkaline Phosphatase 75 (39-117) U/L Total Protein 7.9 (6.5-8.0) g/dL Albumin 4.3 (3.5-5.0) g/dL Radiology Impression Discussion of test interpretation with radiology: I have reviewed the radiologist's reading. Radiologist Impression: [address] [address] [address] Scan Report Signed Patient: Mary Ann Ley MR#: [id number] : 1970 Acct:[id number] Age/Sex: 53 / F ADM Date: 10/15/24 Loc: HO.ED Attending Dr: Ordering Physician: Sandra Castro Date of Service: 10/15/24 Procedure(s): CT head/brain wo IV con Accession Number(s): [id number] cc: Sandra Castro; Physician,Unknown ~ Report Number: [id number]: Total DLP = 614.00 mGy-cm CLINICAL HISTORY: head strike CT head without contrast Comparison: None Findings: No intra-axial mass, midline shift, hydrocephalus, or acute hemorrhage. No significant atrophy-like change or white matter disease. There is no sinus or mastoid fluid. The orbits are within normal limits. There is no acute fracture. IMPRESSION: 1. No acute intracranial findings. This document has been electronically signed by: Sourav Lane MD on 10/15/2024 16:20:59 Dictated By: Sourav Lane MD Report Number: [id number]: Total DLP = 278.00 mGy-cm CLINICAL HISTORY: head strike CT cervical spine without contrast Comparison: None Findings: Normal vertebral body alignment. There is mild degenerative change. No acute fractures or dislocations. No acute findings on limited view of the intracranial contents. Soft tissues of the neck are normal. Lung apices are clear. IMPRESSION: No acute findings. This document has been electronically signed by: Sourav Lane MD on 10/15/2024 16:19:27 Dictated By: Sourav Lane MD Discharge Plan Discharge Clinical Impression: Closed head injury, Concussion Patient Disposition: Still a Patient Interventions: Admission Worksheet (ED) Last Done: 10/15/24 18:41 Discharge Date/Time: 10/15/24 19:38
[2024-10-15] MEDS: Ondansetron ODT 4 MG TAB.RAPDIS TRANSLINGU (15:06)
[2024-10-15 15:17] LABS: MANUAL DIFF FLAG NO
[2024-10-15 15:25] LABS: Basophils Percent Auto 0.5 % (0-2); Eosinophils Absolute Auto 0.1 X10*3/uL (0.0-0.4); Eosinophils Percent Auto 0.8 % (0-4); Hematocrit 40.3 % (37.0-47.0); Hemoglobin 13.4 g/dl (12.0-16.0); Imm Gran Abs Auto 0.03 X10*3/uL (0.00-0.03); Imm Gran Pct Auto 0.5 % (0.0-0.4); Lymphocytes Absolute Auto 1.3 X10*3/uL (1.2-4.9); Lymphocytes Percent Auto 20.7 % (20-40); Mean Corpuscular HGB Conc 33.3 g/dl (31.0-35.0); Mean Corpuscular Hemoglobin 29.6 pg (27.0-33.0); Mean Platelet Volume 11.6 fL (9.4-12.3); Monocytes Absolute Auto 0.4 X10*3/uL (0.1-1.2); Monocytes Percent Auto 6.2 % (2-11); Neutrophils Absolute Auto 4.6 x10*3/uL (2.0-8.3); Neutrophils Percent Auto 71.3 % (45-73); Platelet Count 179 X10*3/uL (160-400); Red Blood Count 4.53 X10*6/uL (4.20-5.50); Red Cell Distribution Width 11.9 % (11.0-16.0); White Blood Count 6.4 X10*3/uL (4.8-10.8)
[2024-10-15 15:28] LABS: Prothrombin Time 11.4 SEC (10.9-12.4)
[2024-10-15 15:44] LABS: Alanine Aminotransferase 18 U/L (0-31); Albumin Level 4.3 g/dL (3.5-5.0); Anion Gap 14 (12-20); Aspartate Amino Transferase 22 U/L (5-31); Bilirubin Total 0.4 mg/dL (0.0-1.0); Blood Urea Nitrogen 15 mg/dL (9-16); Calcium 9.3 mg/dL (8.4-10.2); Carbon Dioxide 25 mmol/L (22-29); Chloride 104 mmol/L (96-108); Creatinine Clr Calc Pharmacy 79.8; Estimated Glomerular Filt Rate > 60; Glucose Random 99 mg/dL (60-115); Sodium 139 mmol/L (135-145); Total Protein 7.9 g/dL (6.5-8.0)
[2024-10-15 15:48] LABS: Alkaline Phosphatase 75 U/L (39-117)
--- NOTE | 2024-10-15 17:54 | P.HPHOSP_ITS ---
History of Present Illness Date of Service: 10/15/24 Chief Complaint: Fall with head strike and loss of consciousness 53-year-old female who presents emergency department after a slip and fall on ice. Patient states that she was walking and accidentally slipped on ice and fell backwards striking her posterior head. She does report LOC, daughter at bedside reports that she believes that it was for approximately 1 minute, she states that she went to the scene of the incident soon after and patient was already alert. Patient reports that she has had headaches, nausea and dizziness since. She is not on anticoagulation. ER work up including CT head and CT cervical spine negative. Review of Systems 2 Review of Systems: Denies chest pain Denies shortness of breath Admits to mild nausea but no vomiting diarrhea Denies fever chills Admits to posterior headache and stiff neck PMFSH Medical History Anemia Calculus of gallbladder Surgical History Hx laparoscopic cholecystectomy (04/04/24) History of esophagogastroduodenoscopy (EGD) H/O colonoscopy History of endometrial ablation Social History Are you a primary in home caregiver to a significant other at home: No Do you presently have visiting nurse or other home services: No Patient Tobacco Use Status: Never used Tobacco Use of substances other than those prescribed or required for medical reasons: No Advance Directives: No Advance Directives Information Provided: No Do you have a plan to hurt others: No Plan Patient : No service: No Meds Allergies Allergy/AdvReac Type Severity Reaction Status Date / Time shellfish derived Allergy Severe Vomiting Verified 10/15/24 13:50 lactose Allergy Intermediate Gastrointestinal Verified 10/15/24 13:50 Upset Active Medications: Current Medications Acetaminophen (Acetaminophen 325 Mg Tablet) 650 mg PO Q6H PRN PRN Reason: Pain, Mild 1-3,fever,headache Calcium Carbonate (Calcium Carbonate 750 Mg Tab.Chew) 750 mg PO Q4H PRN PRN Reason: Heartburn Magnesium Hydroxide (Milk Of Magnesia 30 Ml Oral.Susp) 30 ml PO DAILY PRN PRN Reason: Constipation Melatonin (Melatonin 3 Mg Tablet) 6 mg PO BEDTIME PRN PRN Reason: Insomnia Ondansetron HCl (Ondansetron Hcl 4 Mg/2 Ml Vial) 4 mg IVPUSH Q8H PRN PRN Reason: Nausea and Vomiting Oxycodone HCl (Oxycodone Hcl Immed Release 5 Mg Tablet) 5 mg PO Q6H PRN PRN Reason: Pain, Moderate(Pain Scale 4-6) Sodium Chloride (0.9 % Sodium Chloride Flush 3 Ml Syringe) 3 ml IVFLUSH QSHIFT [facility] Home Medications ?Medication ?Instructions ?Recorded ?Confirmed ?Last Taken ?Type conj estrogen-medroxyprogesterone 1 tab PO BEDTIME hot flashes 02/09/24 04/18/24 02/07/24 History 0.45 mg-1.5 mg tablet (Prempro) Physical Exam 2 Vital Signs and Narrative: Vital Signs: Last Vital Signs Temp 97.9 F 10/15/24 13:50 Pulse 73 10/15/24 15:13 Resp 16 10/15/24 15:13 BP 162/68 H 10/15/24 15:13 Pulse Ox 97 10/15/24 15:13 O2 Del Method Room Air 10/15/24 15:13 BMI result Body Mass Index 25.4 Const: Other: Awake alert oriented x3 in no acute distress HEENT: Other: External ear canals unremarkable Neck: Other: Supple. No martell signs Resp: Other: Clear to auscultation bilaterally no rales rhonchi or wheezes Cardio: Other: No S4; positive S1-S2; no S3 murmurs rubs or gallops GI: Other: Soft nontender nondistended normoactive bowel sounds Neuro: Other: Cranial nerves 2-12 grossly intact as tested. Motor is 5/5 all extremities. Sensation is intact. Cognition appropriate gait not observed (per ER a toxic) Extrem: Other: No edema bilaterally Results Labs 10/15/24 15:12 10/15/24 15:12 Labs: Laboratory Results - last 24 hr 10/15/24 15:12 MCV 89.0 MCH 29.6 MCHC 33.3 RDW 11.9 Plt Count 179 D MPV 11.6 Immature Gran % (Auto) 0.5 H Neut % (Auto) 71.3 Lymph % (Auto) 20.7 [place] % (Auto) 6.2 Eos % (Auto) 0.8 Baso % (Auto) 0.5 Lymph # (Auto) 1.3 [place] # (Auto) 0.4 Eos # (Auto) 0.1 Baso # (Auto) 0.0 Abs Immat Gran (auto) 0.03 Absolute Neuts (auto) 4.6 Absolute Nucleated RBC 0.000 Nucleated RBC % (auto) 0.0 PT 11.4 INR 1.0 Anion Gap 14 Estim Creat Clear Calc 79.8 Estimated GFR > 60 Random Glucose 99 Calcium 9.3 D Total Bilirubin 0.4 AST 22 ALT 18 Alkaline Phosphatase 75 Total Protein 7.9 Albumin 4.3 Assessment and Plan (1) Closed head injury: Qualifiers: Encounter type: initial encounter Qualified Code(s): S09.90XA - Unspecified injury of head, initial encounter Status: Acute (2) Concussion: Qualifiers: Encounter type: initial encounter Loss of consciousness presence/duration: with LOC of 30 min or less Qualified Code(s): S06.0X1A - Concussion with loss of consciousness of 30 minutes or less, initial encounter Status: Acute Plan 53-year-old female with essentially no past medical history not on anticoagulation presents to the emergency department after a mechanical fall with a head strike followed by at least 1 minute of loss of consciousness as witnessed by her daughter. In the emergency room CT head/CT cervical spine failed to demonstrate any acute abnormalities. Patient was ataxic and dizzy when attempted ambulation 1. Mechanical fall with head strike/loss of consciousness -admit to general medical floor -q.4 hours vital signs with neuro checks overnight -oxycodone for headache Zofran for nausea -reassess in a.m.; question need for repeat imaging Full code Ambulatory Patient requires overnight stay after with head strike and loss of consciousness. Re-evaluate in a.m. Quality Stroke Does the patient have a stroke diagnosis?: No VTE Prior VTE?: No VTE Risk Level:: Medical - low VTE Device Contraindication: Treatment Not Indicated VTE Drug Contraindication: Treatment Not Indicated
--- NOTE | 2024-10-15 18:01 | PHA.MEDREC ---
Addendum entered by Suad Alexis RPh 10/15/24 18:02: [facility] reviewed Original Note: Pharmacy Consult ? Medication Reconciliation Pharmacy has completed the medication reconciliation. Spoke with patient to confirm.
[2024-10-15] MEDS: oxyCODONE HCl Immed Release 5 MG TABLET PO (19:45)
[2024-10-15] MEDS: 0.9 % Sodium Chloride Flush 3 ML SYRINGE IVFLUSH (19:46)
[2024-10-15] MEDS: Acetaminophen 325 MG TABLET 650 MG PO (23:31)
[2024-10-16 03:53] VITALS: BP 126/55; PULSE 60; RESP 18; TEMP 36.6; O2SAT 99
[2024-10-16 07:34] VITALS: BP 109/63; PULSE 63; RESP 18; TEMP 36.5; O2SAT 98
[2024-10-16] MEDS: 0.9 % Sodium Chloride Flush 3 ML SYRINGE IVFLUSH ×2 (07:53→19:34)
[2024-10-16] MEDS: ondansetron HCL 4 MG/2 ML VIAL IVPUSH (07:53)
--- NOTE | 2024-10-16 10:28 | MHC.CM.PN ---
Addendum entered by Ashley Washburn 10/16/24 10:32: will transport to home. Original Note: CM met with Patient and her Daughter at bedside and addressed DOBBS with Patient, providing her with the original and a copy has been placed on the chart. Patient lives in a house with her /HCP/Massimo and her adult Daughter and she required no services [employer]. Home/self care is Patient's goal and CM has initiated and will follow for dc planning. PCP is Dr. Starla Corea and she typically sees [facility]/Radha Stokes.
[2024-10-16 11:40] VITALS: BP 112/57; PULSE 65; RESP 18; TEMP 36.5; O2SAT 97
[2024-10-16] MEDS: Acetaminophen 325 MG TABLET 650 MG PO (11:55)
--- NOTE | 2024-10-16 12:52 | P.PNIM_ITS ---
Subjective Subjective Date of Service: 10/16/24 Interval History: No acute issues overnight. Still difficulty ambulating; headache minimally improved Review of Systems Denies chest pain Denies shortness of breath Admits to mild nausea but no vomiting diarrhea Denies fever chills Admits to posterior headache and stiff neck Physical Exam 2 Vital Signs: Vital Signs: Last Vital Signs Temp 97.7 F 10/16/24 11:40 Pulse 65 10/16/24 11:40 Resp 18 10/16/24 11:40 BP 112/57 L 10/16/24 11:40 Pulse Ox 97 10/16/24 11:40 O2 Del Method Room Air 10/16/24 11:40 BMI result Body Mass Index 25.4 Const: Other: Awake alert oriented x3 in no acute distress HEENT: Other: External ear canals unremarkable Neck: Other: Supple. No martell signs Resp: Other: Clear to auscultation bilaterally no rales rhonchi or wheezes Cardio: Other: No S4; positive S1-S2; no S3 murmurs rubs or gallops GI: Other: Soft nontender nondistended normoactive bowel sounds Neuro: Other: Cranial nerves 2-12 grossly intact as tested. Motor is 5/5 all extremities. Sensation is intact. Cognition appropriate gait not observed (per ER a toxic) Extrem: Other: No edema bilaterally Objective Data Active Medications Acetaminophen (Acetaminophen 325 Mg Tablet) 650 mg PO Q6H PRN PRN Reason: Pain, Mild 1-3,fever,headache Last Admin: 10/16/24 11:55 Dose: 650 mg Documented By: ONI Calcium Carbonate (Calcium Carbonate 750 Mg Tab.Chew) 750 mg PO Q4H PRN PRN Reason: Heartburn Magnesium Hydroxide (Milk Of Magnesia 30 Ml Oral.Susp) 30 ml PO DAILY PRN PRN Reason: Constipation Meclizine HCl (Meclizine Hcl 12.5 Mg Tablet) 12.5 mg PO Q6H PRN PRN Reason: Vertigo Melatonin (Melatonin 3 Mg Tablet) 6 mg PO BEDTIME PRN PRN Reason: Insomnia Ondansetron HCl (Ondansetron Hcl 4 Mg/2 Ml Vial) 4 mg IVPUSH Q8H PRN PRN Reason: Nausea and Vomiting Last Admin: 10/16/24 07:53 Dose: 4 mg Documented By: ONI Ondansetron HCl (Ondansetron Hcl 4 Mg/2 Ml Vial) 4 mg IVPUSH Q4H PRN PRN Reason: Nausea and Vomiting Oxycodone HCl (Oxycodone Hcl Immed Release 5 Mg Tablet) 5 mg PO Q6H PRN PRN Reason: Pain, Moderate(Pain Scale 4-6) Last Admin: 10/15/24 19:45 Dose: 5 mg Documented By: ANGEL Sodium Chloride (0.9 % Sodium Chloride Flush 3 Ml Syringe) [address] [facility] Last Admin: 10/16/24 07:53 Dose: 3 ml Documented By: ONI Labs 10/15/24 15:12 10/15/24 15:12 Labs: Laboratory Results - last 24 hr 10/15/24 15:12 MCV 89.0 MCH 29.6 MCHC 33.3 RDW 11.9 Plt Count 179 D MPV 11.6 Immature Gran % (Auto) 0.5 H Neut % (Auto) 71.3 Lymph % (Auto) 20.7 [place] % (Auto) 6.2 Eos % (Auto) 0.8 Baso % (Auto) 0.5 Lymph # (Auto) 1.3 [place] # (Auto) 0.4 Eos # (Auto) 0.1 Baso # (Auto) 0.0 Abs Immat Gran (auto) 0.03 Absolute Neuts (auto) 4.6 Absolute Nucleated RBC 0.000 Nucleated RBC % (auto) 0.0 PT 11.4 INR 1.0 Anion Gap 14 Estim Creat Clear Calc 79.8 Estimated GFR > 60 Random Glucose 99 Calcium 9.3 D Total Bilirubin 0.4 AST 22 ALT 18 Alkaline Phosphatase 75 Total Protein 7.9 Albumin 4.3 Assessment and Plan (1) Concussion: Status: Acute (2) Closed head injury: Status: Acute Plan 53-year-old female with essentially no past medical history not on anticoagulation presents to the emergency department after a mechanical fall with a head strike followed by at least 1 minute of loss of consciousness as witnessed by her daughter. In the emergency room CT head/CT cervical spine failed to demonstrate any acute abnormalities. Patient was ataxic and dizzy when attempted ambulation 1. Mechanical fall with head strike/loss of consciousness -q.4 hours vital signs with neuro checks overnight... No issue -change vitals and neuro Q shift -oxycodone for headache Zofran for nausea -Fioricet for headache -MRI negative -await Neurology input Full code Ambulatory Patient requires overnight stay after with head strike and loss of consciousness. Re-evaluate in a.m. Quality Stroke Does the patient have a stroke diagnosis?: No VTE Prior VTE?: No VTE Risk Level:: Medical - low VTE Device Contraindication: Treatment Not Indicated VTE Drug Contraindication: Treatment Not Indicated
[2024-10-16 16:00] VITALS: BP 109/55; PULSE 69; RESP 20; TEMP 36.2; O2SAT 97
[2024-10-16 19:35] VITALS: BP 102/55; PULSE 65; RESP 20; TEMP 36.8; O2SAT 97
[2024-10-16 23:56] VITALS: BP 109/59; PULSE 58; RESP 16; TEMP 36; O2SAT 97
[2024-10-17 03:51] VITALS: BP 102/56; PULSE 56; RESP 16; TEMP 36.4; O2SAT 96
[2024-10-17 07:19] VITALS: BP 107/64; PULSE 61; RESP 18; TEMP 36; O2SAT 95
[2024-10-17] MEDS: 0.9 % Sodium Chloride Flush 3 ML SYRINGE IVFLUSH (07:36)
--- NOTE | 2024-10-17 10:31 | P.CNNE_ITS ---
History of Present Illness Data of Consult Service Date: 10/17/24 Primary Care Provider: Starla Corea MD [facility] Reason for consult: Concussion 53 years old woman with no significant past medical history fell on her does steps on eyes hitting back of her head on the ground. Momentarily, she might have passed out. Afterwards, she felt dizzy having headache nauseous and foggy. Now she was feeling little bit better. There was no focal arm or leg weakness or seizure-like episode. She had memory of most of the episode. Review of Systems 2 Review of Systems: No seizure-like episode no significant prior headaches PMFSH Past Medical History Medical History Anemia Calculus of gallbladder Surgical History Surgical History Hx laparoscopic cholecystectomy (04/04/24) History of esophagogastroduodenoscopy (EGD) H/O colonoscopy History of endometrial ablation Social History Social History Are you a primary director career services to a significant other at home: No Do you presently have visiting nurse or other home services: No Patient Tobacco Use Status: Never used Tobacco service: No Meds Allergies Allergy/AdvReac Type Severity Reaction Status Date / Time shellfish derived Allergy Severe Vomiting Verified 10/15/24 13:50 lactose Allergy Intermediate Gastrointestinal Verified 10/15/24 13:50 Upset Active Medications: Current Medications Acetaminophen (Acetaminophen 325 Mg Tablet) 650 mg PO Q6H PRN PRN Reason: Pain, Mild 1-3,fever,headache Last Admin: 10/16/24 11:55 Dose: 650 mg Acetaminophen/Butalbital/Caffeine (Butalb/Acetamin/Caff 50/325/40 Tablet) 1 tab PO Q4H PRN PRN Reason: Headache Calcium Carbonate (Calcium Carbonate 750 Mg Tab.Chew) 750 mg PO Q4H PRN PRN Reason: Heartburn Ibuprofen (Ibuprofen 600 Mg Tablet) 600 mg PO Q6H PRN PRN Reason: Pain, Mild (Pain Scale 1-3) Magnesium Hydroxide (Milk Of Magnesia 30 Ml Oral.Susp) 30 ml PO DAILY PRN PRN Reason: Constipation Meclizine HCl (Meclizine Hcl 12.5 Mg Tablet) 12.5 mg PO Q6H PRN PRN Reason: Vertigo Melatonin (Melatonin 3 Mg Tablet) 6 mg PO BEDTIME PRN PRN Reason: Insomnia Ondansetron HCl (Ondansetron Hcl 4 Mg/2 Ml Vial) 4 mg IVPUSH Q8H PRN PRN Reason: Nausea and Vomiting Last Admin: 10/16/24 07:53 Dose: 4 mg Ondansetron HCl (Ondansetron Hcl 4 Mg/2 Ml Vial) 4 mg IVPUSH Q4H PRN PRN Reason: Nausea and Vomiting Oxycodone HCl (Oxycodone Hcl Immed Release 5 Mg Tablet) 5 mg PO Q6H PRN PRN Reason: Pain, Moderate(Pain Scale 4-6) Last Admin: 10/15/24 19:45 Dose: 5 mg Sodium Chloride (0.9 % Sodium Chloride Flush 3 Ml Syringe) 3 ml IVFLUSH QSHIFT [facility] Last Admin: 10/17/24 07:36 Dose: 3 ml Home Medications ?Medication ?Instructions ?Recorded ?Confirmed ?Last Taken ?Type conj estrogen-medroxyprogesterone 1 tab PO BEDTIME hot flashes 02/09/24 10/15/24 10/15/24 History 0.45 mg-1.5 mg tablet (Prempro) Physical Exam 2 Vital Signs: Vital Signs: Last Vital Signs Temp 96.8 F 10/17/24 07:19 Pulse 61 10/17/24 07:19 Resp 18 10/17/24 07:19 BP 107/64 10/17/24 07:19 Pulse Ox 95 10/17/24 07:19 O2 Del Method Room Air 10/17/24 07:19 BMI result Body Mass Index 25.4 Neuro: Other: She is alert and awake with normal spontaneity of speech fluency comprehension and affect. Face is symmetrical. Visual figueroa are full. There is no pronator drift. Horizontal eye movements were making her dizzy. [id number] testing was normal. Deep tendon reflexes were trace with flexor plantars. Speech was normal. Results Labs 10/15/24 15:12 10/15/24 15:12 Labs: Noncontrast head CTA of brain and MRI of brain were reviewed. No significant abnormality was noted. Assessment and Plan (1) Concussion: Qualifiers: Encounter type: initial encounter Loss of consciousness presence/duration: with LOC of 30 min or less Qualified Code(s): S06.0X1A - Concussion with loss of consciousness of 30 minutes or less, initial encounter Status: Acute Probably level 3 concussion. She was educated about this concept and was advised to take it easy for few weeks. She might have difficulty doing intellectual work or physical work including working on computer for few weeks. Propranolol 10 mg a day can be tried for headaches. Dizziness can be treated with as needed 12.5 mg meclizine. Sometime dizziness becomes a chronic issue because of concussion to vestibular system. I would expect slow improvement of symptoms and next few weeks. Procedures Date of Service Date of Service: 10/17/24
--- NOTE | 2024-10-17 11:51 | P.DS_ITS ---
DS: Providers Provider Date of Service: 10/17/24 Date of admission: 10/15/24 17:48 Date of discharge: 10/17/24 Primary care physician: Starla Corea MD Consults: 10/16/24 08:00 Consult to Neurology Routine Consulting Provider: [facility] Reason for consultation: Head strike with LOC Has provider been notified: Yes DS: Diagnosis Discharge Diagnosis (1) Concussion: Status: Acute DS: Summary Hospital Course Hospital Course: 53-year-old female who presents emergency department after a slip and fall on ice. Patient states that she was walking and accidentally slipped on ice and fell backwards striking her posterior head. She does report LOC, daughter at bedside reports that she believes that it was for approximately 1 minute, she states that she went to the scene of the incident soon after and patient was already alert. Patient reports that she has had headaches, nausea and dizziness since. She is not on anticoagulation. ER work up including CT head and CT cervical spine negative. Hospital Course Admitted to general medical floor. Continued with headaches and positional dizziness after 24 hours. MRI was obtained which failed to demonstrate any acute abnormalities. Seen in consultation by Neurology who felt this was a grade 3 concussion and recommended Inderal daily for the headaches. At this point she is medically acceptable for discharge to home. We will provide a work note for 2 weeks and follow up with the PCP for further recommendations on returning to work. Time Attestation Discharge Coordination Time (in mins): 35 Quality: Safe Use of Opioids Does Pt have an Active Cancer Diagnosis on the Problem List?: No Quality: Stroke Does the patient have a stroke diagnosis?: No Physical Exam Vital Signs: Vital Signs: Last Vital Signs Temp 96.8 F 10/17/24 07:19 Pulse 61 10/17/24 07:19 Resp 18 10/17/24 07:19 BP 107/64 10/17/24 07:19 Pulse Ox 95 10/17/24 07:19 O2 Del Method Room Air 10/17/24 07:19 BMI result Body Mass Index 25.4 Const: Other: Awake alert oriented x3 in no acute distress HEENT: Other: External ear canals unremarkable Neck: Other: Supple. No martell signs Resp: Other: Clear to auscultation bilaterally no rales rhonchi or wheezes Cardio: Other: No S4; positive S1-S2; no S3 murmurs rubs or gallops GI: Other: Soft nontender nondistended normoactive bowel sounds Neuro: Other: Cranial nerves 2-12 grossly intact as tested. Motor is 5/5 all extremities. Sensation is intact. Cognition appropriate gait not observed (per ER a toxic) Extrem: Other: No edema bilaterally Discharge Plan Discharge Anticipated Discharge Date/Time: 10/17/24 11:42 Patient Disposition: Home, Self-Care Discharge Diagnosis: Grade 3 concussion Referrals: Starla Corea MD [Primary Care Provider] - 1 Week Discharge Medications: New propranolol 10 mg tablet 10 mg PO BID Qty: 30 0RF meclizine 12.5 mg tablet 12.5 mg PO TID PRN (Reason: dizziness or vertigo) Qty: 30 0RF Continued Prempro 0.45-1.5 mg tablet 1 tab PO BEDTIME Discharge Orders: Discharge Order (Routine); Ordered 10/17/24 Ordered By: Manjit Pepper Diet: Advance to usual diet Activity on Discharge: As tolerated Stand Alone Forms: Patient Portal Discharge page Print Language: Yemeni Care Plan Goals: Continue her Prempro as ordered. Take propranolol 10 mg daily for headaches. When headaches resolve you can stop taking the propranolol. Use meclizine for dizziness or motion sickness as needed Health Concerns: Follow up with your PCP next available Plan of Treatment: No work for 2 weeks. Follow up with PCP for further instructions about returning to work Assessment: See discharge summary
[2024-10-17 12:00] VITALS: BP 116/60; PULSE 66; RESP 18; TEMP 36.1; O2SAT 98
--- NOTE | 2024-10-17 12:06 | PM.DS ---
DS: Providers Provider Date of Service: 10/17/24 Date of admission: 10/15/24 17:48 Date of discharge: 10/17/24 Primary care physician: Starla Corea MD Consults: 10/16/24 08:00 Consult to Neurology Routine Consulting Provider: [facility] Reason for consultation: Head strike with LOC Has provider been notified: Yes DS: Diagnosis Discharge Diagnosis (1) Concussion: Status: Acute DS: Summary Hospital Course Hospital Course: 53-year-old female who presents emergency department after a slip and fall on ice. Patient states that she was walking and accidentally slipped on ice and fell backwards striking her posterior head. She does report LOC, daughter at bedside reports that she believes that it was for approximately 1 minute, she states that she went to the scene of the incident soon after and patient was already alert. Patient reports that she has had headaches, nausea and dizziness since. She is not on anticoagulation. ER work up including CT head and CT cervical spine negative. Hospital Course Admitted to general medical floor. Continued with headaches and positional dizziness after 24 hours. MRI was obtained which failed to demonstrate any acute abnormalities. Seen in consultation by Neurology who felt this was a grade 3 concussion and recommended Inderal daily for the headaches. At this point she is medically acceptable for discharge to home. We will provide a work note for 2 weeks and follow up with the PCP for further recommendations on returning to work. Time Attestation Discharge Coordination Time (in mins): 35 Quality: Safe Use of Opioids Does Pt have an Active Cancer Diagnosis on the Problem List?: No Quality: Stroke Does the patient have a stroke diagnosis?: No Physical Exam Vital Signs: Vital Signs: Last Vital Signs Temp 96.8 F 10/17/24 07:19 Pulse 61 10/17/24 07:19 Resp 18 10/17/24 07:19 BP 107/64 10/17/24 07:19 Pulse Ox 95 10/17/24 07:19 O2 Del Method Room Air 10/17/24 07:19 BMI result Body Mass Index 25.4 Discharge Plan Discharge Anticipated Discharge Date/Time: 10/17/24 11:42 Patient Disposition: Home, Self-Care Discharge Diagnosis: Grade 3 concussion Referrals: Starla Corea MD [Primary Care Provider] - 1 Week Discharge Medications: New propranolol 10 mg tablet 10 mg PO BID Qty: 30 0RF meclizine 12.5 mg tablet 12.5 mg PO TID PRN (Reason: dizziness or vertigo) Qty: 30 0RF Continued Prempro 0.45-1.5 mg tablet 1 tab PO BEDTIME Discharge Orders: Discharge Order (Routine); Ordered 10/17/24 Ordered By: Manjit Pepper Diet: Advance to usual diet Activity on Discharge: As tolerated Stand Alone Forms: Patient Portal Discharge page, Work/School Release Print Language: Iranian Care Plan Goals: Continue her Prempro as ordered. Take propranolol 10 mg daily for headaches. When headaches resolve you can stop taking the propranolol. Use meclizine for dizziness or motion sickness as needed Health Concerns: Follow up with your PCP next available Plan of Treatment: No work for 2 weeks. Follow up with PCP for further instructions about returning to work Assessment: See discharge summary Discharge Date/Time: 10/17/24 12:53
--- NOTE | 2024-10-17 12:33 | MHC.CM.PN ---
Patient dc'd home self care via private transport.
== END 2024-10-17 12:53 | disposition home or self-care (01) ==
LOC: HO.ED 17:11 → HO.EDOVER 17:59 → HO.S3 18:20
PROVIDERS: Admitting Provider Hospitalist; Emergency Provider Emergency Medicine; PCP Family Medicine; Visit Provider Hospitalist
DX: S06.0X9A Concussion with loss of consciousness of unspecified duration, initial encounter (principal); W00.0XXA Fall on same level due to ice and snow, initial encounter; Y93.9 Activity, unspecified; Y92.9 Unspecified place or not applicable; Y99.9 Unspecified external cause status; R42 Dizziness and giddiness; R51.9 Headache, unspecified; M54.2 Cervicalgia; R11.0 Nausea
CPT/HCPCS: 36415; 70450; 70551; 72125; 73502; 80053; 85025; 85610; 96374; 99221; 99285; J2405

== ENCOUNTER → 2024-10-15 14:44 | Outpatient (BNV) | payer OTHER, SELFPAY | PROVIDERS: Emergency Provider Emergency Medicine; Visit Provider Nuclear Medicine | DX: S09.90XA Unspecified injury of head, initial encounter (principal); M25.551 Pain in right hip | CPT/HCPCS: 70450; 72125; 73502 ==

== ENCOUNTER 2024-10-15 17:48 | Outpatient (BNV) | payer OTHER, SELFPAY | END 2024-10-16 10:25 | PROVIDERS: Admitting Provider Hospitalist; Emergency Provider Emergency Medicine; Visit Provider Radiology Vascular & Interventional Radiology | DX: S06.0X1A Concussion with loss of consciousness of 30 minutes or less, initial encounter (principal) | CPT/HCPCS: 70551 ==

== ENCOUNTER → 2024-10-15 17:48 | Outpatient (BNV) | payer OTHER, SELFPAY | PROVIDERS: Admitting Provider Hospitalist; Emergency Provider Emergency Medicine; Visit Provider Hospitalist | DX: S06.0X1A Concussion with loss of consciousness of 30 minutes or less, initial encounter (principal) | CPT/HCPCS: 99223; 99232; 99239 ==

== ENCOUNTER → 2024-10-15 17:48 | Outpatient (BNV) | payer OTHER, SELFPAY | PROVIDERS: Admitting Provider Hospitalist; Emergency Provider Emergency Medicine; PCP Family Medicine; Visit Provider Psychiatry & Neurology Neurology | DX: S06.0X1A Concussion with loss of consciousness of 30 minutes or less, initial encounter (principal) | CPT/HCPCS: 99222 ==

== ENCOUNTER 2025-04-10 08:30 | Outpatient (AMB) | payer OTHER, SELFPAY ==
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
[2025-04-10 08:34] VITALS: BP 118/62; PULSE 61; O2SAT 98; BMI 23.9
--- OUTSIDE RECORDS SUMMARY | 2025-04-10 08:48 | XMS_ITS | Patient Health Record ---
Author Organization [facility] Address [address] [address] Care Team Providers Care Value Advisor Name Role Phone Beatriz Pillai Primary Care Provider KELLY Aguilar Unavailable [phone] Allergies Allergen (clinical drug ingredient) Drug/Non Drug Allergy documented on EMR Reaction Allergy Type Onset Date Status lactose Lactose (Intolerance) Unknown Drug Allergy Active Shellfish (FN) Shellfish-derived Products Nausea and vomiting Drug Allergy Active Reason For Referral No Information Medications Medication SIG (Take, Route, Fr equency, Duration) Notes Start Date End Date Status Prempro Active Diclofenac Sodium 1 % 2 grams to arthrit ic toe joint Externally twice a day for 30 days 09/01/2024 Active Problems Problem Type SNOMED Code ICD Code Onset Dates Problem Status W/U Status Risk Notes Problem [id number] Acquired hallux rigidus of right foot (M20.21) Active confirmed Problem 9913792383494284 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) Active confirmed Problem [id number] 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) Active confirmed Vital Signs Height 62 in 02/13/2025 Weight 134.3 lbs 02/13/2025 BMI 24.56 kg/m2 02/13/2025 Procedures Procedure Date Ordered Date Performed Result Body Sit e DRAIN/INJECT, SMALL JOINT/BURSA 09/01/2024 N/A DRAIN/INJECT, SMALL JOINT/BURSA 02/13/2025 N/A Encounters Encounter Location Date Provider Diagnosis [facility] [address] [address] 09/01/2024 KELLY LUNDY Osteoarthritis of fi rst metatarsophalangeal (MTP) joint of right foot M19.071 ; Capsulitis of toe of right foot M77.51 and Osteoarthritis of first metatarsophalangeal (MTP) joint of left foot M19.072 [facility] [address] [facility] [address] [place] [address] 02/13/2025 KELLY LUNDY Osteoarthritis of fi rst metatarsophalangeal (MTP) joint of right foot M19.071 and Capsulitis of toe of right foot M77.51 [facility] [address] [address] 09/01/2024 KELLY LUNDY Assessments Encounter Date Diagnosis (ICD Code) Assessment Notes Treatment Notes Treatment Clinical Notes Section Notes 09/01/2024 Osteoarthritis of first metatarsophalangeal (MTP) joint of right foot (ICD-10 - M19.071) Patient with chronic osteoarthritic changes to the right first metatarsal phalangeal joint and mild changes to the left. She has had a cheilectomy in the remote past that provided minimally relief on the right. She continues to use voltaren gel and this has made it manageable. She wished for refills today. And this was sent over. She will follow back with me as needed. 09/01/2024 Capsulitis of toe of right foot (ICD-10 - M77.51) Patient examined and evaluated. Past medical history reviewed. She has been experiencing new pain under the right 2nd MTP for the last couple of months. I discussed with her that this is transfer pressure from her right 1st MTP and it has caused inflammation of the capsular structures to the 2nd toe. This can happen when the motion is restricted at the great toe. I discussed options of treatment with injections, NSAIDs, stiff soled shoe gear, and offloading. She wished to try an injection to this joint. This was done using a dorsal approach to the right 2nd MTP today. She tolerated it well. I advised resting for the next 3-4 days with icing. I gave her recs on Altra and Kuru sneakers as well. 02/13/2025 Osteoarthritis of first metatarsophalangeal (MTP) joint of right foot (ICD-10 - M19.071) Patient with chronic osteoarthritic changes to the right first metatarsal phalangeal joint and mild changes to the left. She has had a cheilectomy in the remote past that provided minimally relief on the right. She continues to use voltaren gel and this has made it manageable. 02/13/2025 Capsulitis of toe of right foot (ICD-10 - M77.51) Patient examined and evaluated. Past medical history reviewed. She has been experiencing recurrent pain under the right 2nd MTP for the last couple of months. I discussed with her that this is transfer pressure from her right 1st MTP and it has caused inflammation of the capsular structures to the 2nd toe. This can happen when the motion is restricted at the great toe. I discussed options of treatment with injections, NSAIDs, stiff soled shoe gear, and offloading. She wished to try another injection to this joint as the last one helped her a lot. This was done using a dorsal approach to the right 2nd MTP today. She tolerated it well. I advised resting for the next 3-4 days with icing. She will follow back with me as needed. I encouraged her to call with any questions or concerns. 09/01/2024 Osteoarthritis of first metatarsophalangeal (MTP) joint of left foot (ICD-10 - M19.072) Plan Of Treatment Pending Test Test Name Order Date Test, Urine 05/31/2020 CBC, Platelet; No Differential 0 Basic Metabolic Panel (8) 05/31/2020 X ray : Foot, left 3v 04/22/2022 X ray : Foot, right 3v 05/31/2020 X ray : Foot, right 3v 01/08/2021 DRAIN/INJECT, SMALL JOINT/BURSA 07/17/20 21 DRAIN/INJECT, SMALL JOINT/BURSA 04/22/20 22 DRAIN/INJECT, SMALL JOINT/BURSA 01/09/20 21 DRAIN/INJECT, SMALL JOINT/BURSA 04/07/20 23 DRAIN/INJECT, SMALL JOINT/BURSA 09/01/20 24 DRAIN/INJECT, SMALL JOINT/BURSA 02/14/20 25 Insurance Providers Payer Name Payer Address Payer Phone Subscriber Number Group Number Insured Name Patient Relationship to Insured Coverage Start Date Coverage End Date [facility] [address] [place] [phone] [id number] Mary Ann Ley Self - patient is the insured Medications Administered Medication Instructions Date of Administration Dosage Notes Dexamethasone 01/08/2021 2 mg Dexamethasone 07/17/2021 2 mg Dexamethasone 04/22/2022 2 mg Dexamethasone 04/07/2023 2 mg dexAMETHasone Sod Phosphate PF 09/01/2024 1 mg dexAMETHasone Sod Phosphate PF 02/13/2025 1 mg Kenalog 01/08/2021 20 mg Kenalog 07/17/2021 20 mg Kenalog 04/22/2022 5 mg Kenalog 04/07/2023 5 mg Kenalog 09/01/2024 2.5 mg Kenalog 02/13/2025 2.5 mg Medical (General) History Medical History History ICD Code osteoarthritis concussion 10/2024 Surgical History Surgery Date(Month/Year) Endometrial ablation 2012 Right 1st MPJ cheilectomy 2019 gallbladder surgery 2023 Hospitalization History Reason Date(Month/Year) concussion 11/08 vaginal delivery (boy) 1998 vaginal delivery (boy) 1995 vaginal delivery (girl) 1993
--- OUTSIDE RECORDS SUMMARY | 2025-04-10 08:48 | XMS_ITS | Clinical Summary ---
Author Organization [address] Address [address] [place] [phone] Phone Care Team Providers Care Client Services Specialist Name Role Phone Starla Corea MD Primary Care Provider Allergies Active Allergy Reactions Criticality Noted Date Comments Lactose 04/28/2016 Shellfish Derived Nausea And Vomiting 7 Trazodone 04/04/2024 Insomnia Medications cetirizine (ZyrTEC) 10 mg tablet Take 1 tablet (10 mg total) by mouth 1 (one) time each day. 30 each 11/29/2024 Active estrogen, conjugated,-medr oxyPROGESTERone (PREMPRO) 0.45-1.5 mg per tablet Take 1 tablet by mouth 1 (one) time each day. 90 tablet 02/09/2025 Active Active Problems Problem Noted Date Diagnosed Date Diarrhea 08/24/2024 Immunizations Name Administration Dates Next Due [employer] SARS-CoV-2 COVID-19, mRNA, LNP-S, preservative free 08/20/2021,07/30/2021 Tdap Tetanus diptheria acell ular pertussis (Boostrix; Adacel) 7yo and older 10/05/2023,02/14/2013 Surgical History Surgery Date Site/Laterality Comments OTHER SURGICAL HISTORY PROCEDURE: DENIES PREVIOUS SURGERY ENDOMETRIAL ABLATION 03/23/2013 PROCEDURE: NC ENDOMETRIAL ABLTJ THERMAL W/O HYSTEROSCOPIC GUID; COMMENT: Performed by Dr. Cruz COLONOSCOPY 12/09/2017 PROCEDURE: HISTORICAL COLONOSCOPY; COMMENT: negative UPPER GASTROINTESTINAL ENDOSCOPY 12/09/2017 PROCEDURE: NC UPPER GI ENDOSCOPY PERFORMED; COMMENT: negative FOOT SURGERY 07/20/2020 Right PROCEDURE: HISTORICAL FOOT SURGERY; COMMENT: Dr. Chapman Medical History Medical History Date Comments Diarrhea DX:Diarrhea Family History Medical History Relation Name Comments Hypertension Father Emphysema Maternal Grandmother SMOKER Hypertension Mother Thyroid disease Mother smoker Breast cancer Neg Hx Colon cancer Neg Hx Ovarian cancer Neg Hx Relation Name Status Comments Brother Alive Well Daughter Alive 1993; Tierra; we ll Father Alive obesity,HTN; mi ld CVA early 60's Maternal Grandfather Maternal Grandmother Emphyse ma Mother Alive Hypothyroid,obe sity,HTN Paternal Grandfather Paternal Grandmother Sister 1 Alive Well Sister 2 Alive Well Son 1 Alive 1995; Sarwat perry Son 2 Alive 1998; Cosme; adam Social History Tobacco Use Types Packs/Day Years Used Date Smoking Tobacco: Never Smokeless Tobacco: Never Tobacco Cessation:Counseling Given: Not Answered Alcohol Use Standard Drinks/Week Comments Yes 0 (1 standard drink = 0.6 oz pur e alcohol) Comments No Sex and Gender Information Value Date Recorded Sex Assigned at Not on file Legal Sex Female 9:16 PM EST Gender Identity Not on file Sexual Orientation Not on file Obstetrics History Last Filed Vital Signs Vital Sign Reading Time Taken Comments Blood Pressure 102/60 12/13/2024 3:50 PM EDT Pulse 84 12/13/2024 3:50 PM EDT Temperature 36.5 C (97.7 F) 12/13/2024 3:50 PM EDT Respiratory Rate 16 12/13/2024 3:50 PM EDT Oxygen Saturation 98% 11/29/2024 1:14 PM EDT Inhaled Oxygen Concentration - - Weight 60.9 kg (134 lb 3.2 oz) 12/13/2024 3:50 P M EDT Height 157.2 cm (5' 1.89 ) 12/13/2024 3:50 PM ED T Body Mass Index 24.63 12/13/2024 3:50 PM EDT Plan of Treatment Upcoming Encounters Date Type Department Care Team (Late st Contact Info) Description 05/01/2025 2:30 PM EDT Office Visit Adult Medicine - [place] [address] [place] [address] Starla Corea MD [address] [place] [address] 05/29/2025 3:00 PM EDT Appointment Radiology Department - [address] [phone] 05/29/2025 3:45 PM EDT Appointment Radiology Department - [address] [phone] Health Maintenance Due Date Last Done Comments Hepatitis B Vaccines (1 of 3 - 19+ 3-dose series) 1989 Pneumococcal Vaccine: 50+ Years (1 of 1 - PCV) 2020 Zoster Vaccines (1 of 2) 2020 HIV Screening 08/23/2022 Social Influencers of Health Screening 08/23/2022 COVID-19 Vaccine (3 - 2023- season) 2024 08/20/2021, 07/30/2021 Depression Screening 09/14/2024 Influenza Vaccine (#1) 2025 Breast Cancer Screening 06/06/2026 06/06/20 24, 06/06/2024, 05/23/2024, Additional history exists Colorectal Cancer Screening: Colonoscopy 12/10/2027 12/09/2017 Cholesterol Screening (Lipid Panel) 10/05/2028 10/05/2023 Cervical Cancer Screening: HPV 01/12/2029 01/13/2024 DTaP,Tdap,and Td Vaccines (3 - Td or Tdap) 10/05/2033 10/05/2023, 02/14/2013 Hepatitis C Screening Completed 10/05/2023 HIB Vaccines Aged Out No longer eligi ble based on patient's age to complete this topic HPV Vaccines Aged Out No longer eligi ble based on patient's age to complete this topic Hepatitis A Vaccines Aged Out No long er eligible based on patient's age to complete this topic IPV Vaccines Aged Out No longer eligi ble based on patient's age to complete this topic MMR Vaccines Aged Out No longer eligi ble based on patient's age to complete this topic Meningococcal ACWY Vaccine Aged Out N o longer eligible based on patient's age to complete this topic Meningococcal B Vaccine Aged Out No l onger eligible based on patient's age to complete this topic RSV Immunization Patients Under 20 months Aged Out No longer eligible based on patient's age to complete this topic Varicella Vaccines Aged Out No longer eligible based on patient's age to complete this topic Procedures Procedure Name Priority Date/Time Associated Diagnosis Comments DIAGNOSTIC MAMMOGRAPHY WITH CAD UNILATERAL Routine 06/06/2024 1:58 PM EDT Other abnormal and inconclusive findings on diagnostic imaging of breast HM HPV Routine 01/13/2024 HM HEPATITIS C SCREENING Routine 10/05/2023 LIPID PANEL Routine 10/05/2023 HM COLONOSCOPY Routine 12/09/2017 from Last 3 Months or Most Recently Relevant to Health Maintenance Results * DIAGNOSTIC MAMMOGRAPHY WITH CAD UNILATERAL (06/06/2024 1:58 PM EDT) Anatomical Region Laterality Modality Mammography 05/24/2024 12:5 7 PM EDT Narrative 06/06/2024 2:35 PM EDT This is a summary report. The complete report is available in the patient's medical record. If you cannot access the medical record, please contact the sending organization for a detailed fax or copy. Left breast mammogram, additional views. Limited left breast ultrasound. Tomosynthesis views of the left breast were obtained including spot compression CC, spot compression MLO and full-field straight lateral view to follow 05/23/2020 for examination. The density of concern in the upper outer left breast was essentially effaced on the additional views. No new focal abnormalities were identified. Limited ultrasound of the left upper outer breast was performed. There is a mildly complex cystic structure with some septations at 2:00, 2 cm from the nipple measuring 0.7 x 0.3 x 0.5 cm. It is most likely benign, probably representing focus of apocrine metaplasia. The findings were explained to the patient. 6 months follow-up ultrasound was recommended and it was scheduled. Conclusions: Probably benign complex cystic structure in the left breast at 2:00. Follow-up in 6 months is recommended. BI-RADS 3, probably benign findings. Procedure Note Marjan Vegas MD - 06/29/2024 This is a summary report. The complete report is available in thepatient's medical record. If you cannot access the medical record, pleasecontact the sending organization for a detailed fax or copy. Left breast mammogram, additional views. Limited left breastultrasound. Tomosynthesis views of the left breast were obtained including spotcompression CC, spot compression MLO and full-field straight lateral viewto follow 05/23/2020 for examination. The density of concern in the upperouter left breast was essentially effaced on the additional views. No newfocal abnormalities were identified. Limited ultrasound of the left upper outer breast was performed. There amilcar mildly complex cystic structure with some septations at 2:00, 2 cm fromthe nipple measuring 0.7 x 0.3 x 0.5 cm. It is most likely benign,probably representing focus of apocrine metaplasia. The findings were explained to the patient. 6 months follow-up ultrasoundwas recommended and it was scheduled. Conclusions: Probably benign complex cystic structure in the left breastat 2:00. Follow-up in 6 months is recommended. BI-RADS 3, probably benign findings. Result [facility] Radha SANCHEZ IMElisabeth BI PROCEDURES Final Result * Cervical Cancer Screening: HPV (01/13/2024) [facility] Cervical Cancer Screening: HPV Negative, Abstracted Historical Provider HEALTH MAINTENANCE Final Result * Hepatitis C Screening (10/05/2023) [facility] Hepatitis C Screening Abstracted Historical Provider HEALTH MAINTENANCE Final Result * (ABNORMAL) Lipid panel (10/05/2023) [facility] LDL/HDL Ratio 2 0 - 4 Triglycerides 55 0 - 150 mg/dL Cholesterol 209(A) 0 - 200 mg/dL HDL 114 >=40 mg/dL LDL Cholesterol 84 0 - 100 mg/dL Blood Venous blood specimen / Unknown Historical Provider LAB BLOOD ORDERABLES Sabina l Result * Colonoscopy (12/09/2017) Colonoscopy No Interpretation , Abstracted Anatomical Region Laterality Modality Other us Historical Provider HEALTH MAINTENANCE Final Result from Last 3 Months or Most Recently Relevant to Health Maintenance Insurance [facility] [address] [place] [phone] Care Teams Client Services Specialist Relationship Specialty Start Date End Date Starla Corea MD [address] [facility] [address] [place], [place] [id number] PCP - General Internal Medicine 04/18/22
== END 2025-04-10 10:00 | disposition home or self-care (01) ==
LOC: HO.HSMS 08:31
PROVIDERS: PCP Family Medicine; Visit Provider Nurse Practitioner Family
DX: R55 Syncope and collapse (principal); F07.81 Postconcussional syndrome; G44.329 Chronic post-traumatic headache, not intractable
CPT/HCPCS: 99204

== ENCOUNTER 2025-06-15 12:55 | Outpatient (REF) | payer OTHER, SELFPAY ==
--- OUTSIDE RECORDS SUMMARY | 2025-06-15 14:21 | XMS_ITS | Clinical Summary ---
Author Organization [address] Address [address] [place] [phone] Phone Care Team Providers Care Knife Grinder Name Role Phone Starla Corea MD Primary [...] Problem Noted Date Diagnosed Date Diarrhea 08/24/2024 Encounters Date Type Department Care Team Description 05/29/2025 2:56 PM EDT - 05/29/2025 11:59 PM EDT Hospital Encounter Radiology Department - [address] [phone] Other abnormal and inconclusive findings on diagnostic imaging of breast Discharge Disposition: Home or Self Care 05/29/2025 2:56 PM EDT - 05/29/2025 11:59 PM EDT Hospital Encounter Radiology Department - [address] [phone] Encounter for screening mammogram for breast cancer Discharge Disposition: Home or Self Care 05/01/2025 2:30 PM EDT Telemedicine Adult Medicine - [address] [phone] Starla Corea MD Post concussion syndrome (Primary Dx) from Last 3 Months Immunizations Immunization Administration Dates Next Due Pfizer SARS-CoV-2 COVID-19, mRNA, LNP-S, preservative free 08/20/2021,07/30/2021 Tdap Tetanus diptheria acell ular pertussis (Boostrix; Adacel) 7yo and older 10/05/2023,02/14/2013 Surgical History Surgery Date Site/Laterality Comments OTHER SURGICAL HISTORY PROCEDURE: DENIES PREVIOUS SURGERY ENDOMETRIAL ABLATION 03/23/2013 PROCEDURE: [facility] ENDOMETRIAL ABLTJ THERMAL W/O HYSTEROSCOPIC GUID; COMMENT: Performed by Dr. Cruz COLONOSCOPY 12/09/2017 PROCEDURE: HISTORICAL COLONOSCOPY; COMMENT: negative UPPER GASTROINTESTINAL ENDOSCOPY 12/09/2017 PROCEDURE: [facility] UPPER GI ENDOSCOPY PERFORMED; COMMENT: negative FOOT [...] 1995; Sarwat perry Son 2 Alive 1998; Meg medina Social History Tobacco Use Types Packs/Day Years Used Date Smoking Tobacco: Never Smokeless Tobacco: Never Tobacco Cessation:Counseling Given: Not Answered Alcohol Use Standard Drinks/Week Comments Yes 0 (1 standard drink = 0.6 oz pur e alcohol) Housing Instability Answer Date Recorde d Are you worried that in the next 2 months you may not have stable housing? No 05/01/2025 Food Access & Nutrition Answer Date Rec orded Do you have access to a vari ety of food including fruits and vegetables? Yes 05/01/2025 Health Literacy Answer Date Recorded How often do you need to hav e someone help you when you read instructions, pamphlets, or other written material from your doctor or pharmacy? Never 05/01/2025 Caregiver: How often do you need to have someone help you when you read instructions, pamphlets, or other written material from your doctor or pharmacy? Not on file 05/01/2025 Financial Risk Answer Date Recorded How hard is it for you to pa y for the very basics like food, housing, medical care, and air conditioning / heating? Not very hard 05/01/2025 Transportation Answer Date Recorded Has the lack of transportati on kept you from meetings, work, or from getting things needed for daily living? No Has the lack of transportati on kept you from medical appointments or from getting medications? No 05/01/2025 Social Isolation Answer Date Recorded How often do you feel lonely or isolated from th ose around you? Never 05/01/2025 Food Risk Answer Date Recorded Within the past 12 months we worried whether our food would run out before we got money to buy more. Never true 05/01/2025 Within the past 12 months th e food we bought just didn't last and we didn't have money to get more. Never true 05/01/2025 Dependent Care Answer Date Recorded Do you need help finding or paying for care for your loved ones. For example, summer child caregiver or elderly care for an older adult? No 05/01/2025 Education Answer Date Recorded Do you think completing more education or training, like finishing a GED, going to college, or learning a trade, would be helpful for you? No 05/01/2025 Employment and Income Answer Date Recor ded During the last four weeks, have you been actively looking for work? No 05/01/2025 Living Situation Answer Date Recorded What is your living situation? Unrecognized valu e 05/01/2025 Comments No Sex and Gender Information Value Date Recorded Sex Assigned at Not on file Legal Sex Female 9:16 PM EST Gender Identity Not on file Sexual Orientation Not on file Obstetrics History Para Term AB IAB SAB Ectopic Multiple Livin g Live Births 3 3 3 3 Date Outcome GA Total Labor Labor/2nd/3rd Weight Sex Type Anes PTL Vanessa A1 A5 Name Clin Term Term Term Last Filed Vital Signs Vital Sign Reading [...] 12/13/2024 3:50 PM EDT Plan of Treatment Health Maintenance Due Date Last Done Comments Hepatitis B Vaccines (1 of 3 - 19+ 3-dose series) 1989 Pneumococcal Vaccine: 50+ Years (1 of 1 - PCV) 2020 Zoster Vaccines (1 of 2) 2020 HIV Screening 08/23/2022 COVID-19 Vaccine ( - season) 2025 08/20/2021, 07/30/2021 Influenza Vaccine (#1) 2025 Social Influencers of Health Screening 05/01/2026 05/01/2025 Breast Cancer Screening 05/29/2027 05/29/20 25, 06/06/2024, 06/06/2024, Additional history exists Colorectal Cancer Screening: Colonoscopy 12/10/2027 12/09/2017 Cholesterol Screening (Lipid Panel) 10/05/2028 10/05/2023 Cervical Cancer Screening: HPV 01/12/2029 01/13/2024 DTaP,Tdap,and Td Vaccines (3 - Td or Tdap) 10/05/2033 10/05/2023, 02/14/2013 RSV Immunization Adult Patients (1 - 1-dose 75+ series) 2045 Hepatitis C Screening Completed 10/05/2023 Depression Screening Completed 05/01/2025 HIB Vaccines Aged Out No longer eligi [...] Procedure Name Priority Date/Time Associated Diagnosis Comments US BREAST LIMITED LEFT Routine 05/29/2025 3:51 PM EDT Other abnormal and inconclusive findings on diagnostic imaging of breast MG MAMMO DIGITAL SCREENING W HORACIO BILAT Routine 05/29/2025 3:04 PM EDT Encounter for screening mammogram for breast cancer HPV Routine 01/13/2024 HEPATITIS C SCREENING Routine 10/05/2023 LIPID PANEL Routine 10/05/2023 COLONOSCOPY Routine 12/09/2017 from Last 3 Months or Most Recently Relevant to Health Maintenance Results * US Breast Limited Left (05/29/2025 3:51 PM EDT) Anatomical Region Laterality Modality Breast Left Ultrasound 05/29/2025 3:54 PM EDT Impressions 05/29/2025 3:54 PM EDT Benign ultrasound findings. Septated cyst is not significantly changed, allowing for differences in cursor placement. BI-RADS CATEGORY: 2 - BENIGN RECOMMENDATION: Return to annual mammography. -------- FINAL REPORT -------- Dictated By: Nicole Terry Dictated Date: 05/29/2025 15:54 ET Assigned Physician: Nicole Terry Reviewed and Electronically Signed By: Nicole Terry Signed Date: 05/29/2025 15:54 ET Workstation ID: [id number] Transcribed By: Self Edit Transcribed Date: 05/29/2025 15:54 ET Narrative 05/29/2025 3:54 PM EDT CLINICAL: 54 years old, Female, six-month follow-up probably benign cystic lesion left breast. COMPARISON: Left breast ultrasound 12/14/2024 and 06/06/2024. Bilateral screening mammograms 05/23/2024 and 05/29/2025. Left breast mammogram 06/06/2024. TECHNIQUE: Ultrasound survey evaluation of the upper outer left breast was performed. FINDINGS: There is a 0.8 x 0.7 x 0.5 cm septated cyst at the 2 o'clock position 2 cm from the nipple, previously 0.4 x 0.4 x 0.8 cm. Procedure Note Nicole Terry MD - 05/29/2025 CLINICAL: 54 years old, Female, six-month follow-up probably benign cysticlesion left breast. COMPARISON: Left breast ultrasound 12/14/2024 and 06/06/2024. Bilateralscreening mammograms 05/23/2024 and 05/29/2025. Left breast otkyjucrd17/23/2024. TECHNIQUE: Ultrasound survey evaluation of the upper outer left breastwas performed. FINDINGS: There is a 0.8 x 0.7 x 0.5 cm septated cyst at the 2 o'clock position 2 cmfrom the nipple, previously 0.4 x 0.4 x 0.8 cm. IMPRESSION: Benign ultrasound findings. Septated cyst is not significantly changed,allowing for differences in cursor placement. BI-RADS CATEGORY: 2 - BENIGN RECOMMENDATION: Return to annual mammography. -------- FINAL REPORT -------- Dictated By: Nicole Terry Dictated Date: 05/29/2025 15:54 ET Assigned Physician: Nicole Terry Reviewed and Electronically Signed By: Nicole Terry Signed Date: 05/29/2025 15:54 ET Workstation ID: [id number] Transcribed By: Self Edit Transcribed Date: 05/29/2025 15:54 ET us Radha Kearneymarcello LAURA IMG US PROCEDURES Final Result * (ABNORMAL) MG Mammo Digital Screening w Horacio bilat (05/29/2025 3:04 PM EDT) Anatomical Region Laterality Modality Breast Bilateral Mammography 05/31/2025 10:1 2 AM EDT Impressions 05/31/2025 10:21 AM EDT Microcalcifications in the upper outer posterior left breast. Additional imaging is recommended. We will contact the patient for the arrangements. BI-RADS CATEGORY: 0 - INCOMPLETE - NEED ADDITIONAL IMAGING EVALUATION RECOMMENDATION: Additional left breast imaging recommended. Mammo Location: [facility], [address] [place] [address], [id number], . -------- FINAL REPORT -------- Dictated By: Marjan Vegas Dictated Date: 05/31/2025 10:12 ET Assigned Physician: Marjan Vegas Reviewed and Electronically Signed By: Marjan Vegas Signed Date: 05/31/2025 10:21 ET Workstation ID: [id number] Transcribed By: Self Edit Transcribed Date: 05/31/2025 10:12 ET Narrative 05/31/2025 10:21 AM EDT Bilateral screening mammogram. CLINICAL: 54 years old, Female, routine annual exam. COMPARISON: Prior mammogram from 05/23/2024. TECHNIQUE: Bilateral MLO and CC views were obtained digitally with 2-D C views and 3-D mammogram (digital breast tomosynthesis). Computer-aided detection was utilized in evaluation of this exam (CAD). FINDINGS: There is a grouping of microcalcifications in the left upper outer breast, posterior 3rd. Additional assessment is recommended with magnification views in exaggerated laterally cc view, MLO view as well as in the straight lateral view. We will contact the patient for the arrangements. There is no evidence of suspicious mass or architectural distortion. No other worrisome calcifications are evident. BREAST DENSITY: B - There are scattered areas of fibroglandular density. Procedure Note Marjan Vegas MD - 05/31/2025 Bilateral screening mammogram. CLINICAL: 54 years old, Female, routine annual exam. COMPARISON: Prior mammogram from 05/23/2024. TECHNIQUE: Bilateral MLO and CC views were obtained digitally with 2-D Cviews and 3-D mammogram (digital breast tomosynthesis). Computer-aideddetection was utilized in evaluation of this exam (CAD). FINDINGS: There is a grouping of microcalcifications in the left upper outer breast,posterior 3rd. Additional assessment is recommended with magnificationviews in exaggerated laterally cc view, MLO view as well as in thestraight lateral view. We will contact the patient for thearrangements. There is no evidence of suspicious mass or architectural distortion. Noother worrisome calcifications are evident. BREAST DENSITY: B - There are scattered areas of fibroglandular density. IMPRESSION: Microcalcifications in the upper outer posterior left breast. Additionalimaging is recommended. We will contact the patient for thearrangements. BI-RADS CATEGORY: 0 - INCOMPLETE - NEED ADDITIONAL IMAGING EVALUATION RECOMMENDATION: Additional left breast imaging recommended. Mammo Location: [facility], [address] [place] [address], [id number], . -------- FINAL REPORT -------- Dictated By: Marjan Vegas Dictated Date: 05/31/2025 10:12 ET Assigned Physician: Marjan Vegas Reviewed and Electronically Signed By: Marjan Vegas Signed Date: 05/31/2025 10:21 ET Workstation ID: [id number] Transcribed By: Self Edit Transcribed Date: 05/31/2025 10:12 ET Starla Corea MD IMG BI PROCEDURES Sabina l Result * Cervical Cancer Screening: HPV (01/13/2024) Pathologist [facility] Cervical Cancer Screening: HPV Negative, Abstracted Historical Provider HEALTH MAINTENANCE Final Result * Hepatitis C Screening (10/05/2023) Pathologist [facility] Hepatitis C Screening Abstracted Historical Provider HEALTH MAINTENANCE Final Result * (ABNORMAL) Lipid panel (10/05/2023) LDL/HDL Ratio 2 0 - 4 Triglycerides 55 0 - 150 mg/dL Cholesterol 209(A) 0 - 200 mg/dL HDL 114 >=40 mg/dL LDL Cholesterol 84 0 - 100 mg/dL Blood Venous blood specimen / Unknown us Historical Provider MD LAB BLOOD ORDERABLES Sabina l Result * Colonoscopy (12/09/2017) Colonoscopy No Interpretation , Abstracted Anatomical Region Laterality Modality Other us Historical Provider HEALTH MAINTENANCE Final Result from Last 3 Months or Most Recently Relevant to Health Maintenance Insurance [facility] [address] [place] [address] Care Teams Knife Grinder Relationship Specialty Start Date End Date Starla Corea MD [address] [place] [address] [address] [place], [place] [id number] PCP - General Internal Medicine 04/18/22
--- OUTSIDE RECORDS SUMMARY | 2025-06-15 14:21 | XMS_ITS | Patient Health Record ---
Author Organization [facility] Address [address] [phone] Care Team Providers Care Space Systems Operations Superintendent Name Role Phone Beatriz Pillai Primary Care Provider KELLY Aguilar Unavailable [phone] Allergies Allergen (clinical drug ingredient) Drug/Non Drug [...] arthrit ic toe joint Externally twice a day; Duration: 30 days 09/01/2024 Active Problems Problem Type SNOMED Code ICD Code Onset Dates Problem Status W/U Status Risk Notes Problem Acquired hallux rigidus (5939605) Acquired hallux rigidus of right foot (M20.21) Active confirmed Problem Localized, primary osteoarthritis of the ankle and/or foot (776194305) 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) Active confirmed Problem Localized, primary osteoarthritis of the ankle and/or foot (305144779) 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) Active confirmed Vital Signs Height 62 in 02/13/2025 Weight 134.3 lbs 02/13/2025 BMI 24.56 kg/m2 02/13/2025 Procedures Procedure Date Ordered Date Performed Result Body Sit e DRAIN/INJECT, SMALL JOINT/BURSA 09/01/2024 N/A DRAIN/INJECT, SMALL JOINT/BURSA 02/13/2025 N/A Encounters Encounter Location Date Provider Diagnosis [facility] [address] [phone] 09/01/2024 KELLY LUNDY Osteoarthritis of fi rst metatarsophalangeal (MTP) joint of right foot M19.071 ; Capsulitis of toe of right foot M77.51 and Osteoarthritis of first metatarsophalangeal (MTP) joint of left foot M19.072 [facility] [address] [phone] 02/13/2025 KELLY LUNDY Osteoarthritis of fi rst metatarsophalangeal (MTP) joint of right foot M19.071 and Capsulitis of toe of right foot M77.51 [facility] [address] [phone] 09/01/2024 KELLY LUNDY Assessments Encounter Date Diagnosis [...] Insured Coverage Start Date Coverage End Date [facility] [address] [place], [place] [phone] [id number] Mary Ann Ley Self - patient is [...]
--- NOTE | 2025-06-15 15:13 | EEG_ITS ---
Roomed Performed:?402 Reason: Syncope and collapse History: patient fell on ice and hit back of head,and loss of consciousness for about a minute. Medication: propranolol, meclizine, diclofenac sodium, conj estrog- medroxyprogest Technical description:? Photic stimulation: completed Hyperventilation:?completed Behavioral state: cooperative State of Consciousness: awake Skull defect: None Sedation: None Handedness: Right Duration of study:? 28min ? ? 0sec Description: This is a 16 channel EEG with an EKG lead. Patient is reported awake during the tracing. Background EEG rhythm is 10-12 hertz 5-50 microvolt posteriorly and lower amplitude fast anteriorly. Photic stimulation does not produce any significant abnormality. Hyperventilation is unremarkable. Cardiac lead does not reveal any significant abnormality. No sharp wave spikes or paroxysmal tendency noted. Impression: Unremarkable EEG. MTDD
== END 2025-06-15 12:56 | disposition home or self-care (01) ==
LOC: HO.NEURO 12:55
PROVIDERS: Visit Provider Nurse Practitioner Family
DX: R55 Syncope and collapse (principal)
CPT/HCPCS: 95816

== ENCOUNTER → 2025-06-15 15:13 | Outpatient (BNV) | payer OTHER, SELFPAY | PROVIDERS: Visit Provider Psychiatry & Neurology Neurology | DX: R55 Syncope and collapse (principal) | CPT/HCPCS: 95816 ==

== ENCOUNTER 2025-07-10 07:31 | Outpatient (AMB) | payer OTHER, SELFPAY ==
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
--- OUTSIDE RECORDS SUMMARY | 2025-07-10 07:34 | XMS_ITS | Patient Health Record ---
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) Active confirmed Problem Localized, primary osteoarthritis of the ankle and/or foot (502857771) 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) Active confirmed Vital Signs Height 62 in 02/13/2025 Weight 134.3 lbs 02/13/2025 BMI 24.56 kg/m2 02/13/2025 Procedures Procedure Date Ordered Date Performed Result Body Sit e DRAIN/INJECT, SMALL JOINT/BURSA 09/01/2024 N/A DRAIN/INJECT, SMALL JOINT/BURSA 02/13/2025 N/A Encounters Encounter Location Date Provider Diagnosis [facility] [address] [address] 09/01/2024 KELLY LUNDY Osteoarthritis of fi rst metatarsophalangeal (MTP) joint of right foot M19.071 ; Capsulitis of toe of right foot M77.51 and Osteoarthritis of first metatarsophalangeal (MTP) joint of left foot M19.072 [facility] [address] [address] 02/13/2025 KELLY LUNDY Osteoarthritis of fi rst metatarsophalangeal (MTP) joint of right foot M19.071 and Capsulitis of toe of right foot M77.51 [facility] [address] [address] 09/01/2024 KELLY LUNDY Assessments Encounter Date Diagnosis [...] Insured Coverage Start Date Coverage End Date [facility] [address] [place], [place] [id number] [id number] Mary Ann Ley Self - patient is [...]
--- OUTSIDE RECORDS SUMMARY | 2025-07-10 07:34 | XMS_ITS | Clinical Summary ---
Author Organization [facility] [address] [place] [address] [place] [id number] Phone Care Team Providers Care Software Clerk Name Role Phone Starla Corea MD Primary Care Provider Allergies Active Allergy Reactions Criticality Noted Date Comments Lactose 04/28/2016 Shellfish Derived Nausea And Vomiting 7 Trazodone 04/04/2024 Insomnia Medications cetirizine (ZyrTEC) 10 mg tablet Take 1 tablet (10 mg total) by mouth 1 (one) time each day. 30 each 5 Active estrogen, conjugated,-med roxyPROGESTERon e (PREMPRO) 0.45-1.5 mg per tablet Take 1 tablet by mouth 1 (one) time each day. 90 tablet 5 06/27/20 26 Active estrogen, conjugated,-med roxyPROGESTERon e (PREMPRO) 0.45-1.5 mg per tablet Take 1 tablet by mouth 1 (one) time each day. 90 tablet 5 06/27/20 25 Discontinu ed(Reorder ) Active Problems Problem Noted Date Diagnosed Date Diarrhea 08/24/2024 Encounters Date Type Department Care Team Description 05/29/2025 2:56 PM EDT - 05/29/2025 11:59 PM EDT Hospital Encounter Radiology Department - [address] [address] Other abnormal and inconclusive findings on diagnostic imaging of breast Discharge Disposition: Home or Self Care 05/29/2025 2:56 PM EDT - 05/29/2025 11:59 PM EDT Hospital Encounter Radiology Department - [address] [address] Encounter for screening mammogram for breast cancer Discharge Disposition: Home or Self Care 05/01/2025 2:30 PM EDT Telemedicine Adult Medicine - [address] [address] Starla Corea MD Post concussion syndrome (Primary Dx) from Last 3 Months Immunizations Immunization Administration Dates Next Due Pfizer SARS-CoV-2 COVID-19, mRNA, LNP-S, preservative free 08/20/2021,07/30/2021 Tdap Tetanus diptheria acell ular pertussis (Boostrix; Adacel) 7yo and older 10/05/2023,02/14/2013 Surgical History Surgery Date Site/Laterality Comments OTHER SURGICAL HISTORY PROCEDURE: DENIES PREVIOUS SURGERY ENDOMETRIAL ABLATION 03/23/2013 PROCEDURE: CA ENDOMETRIAL ABLTJ THERMAL W/O HYSTEROSCOPIC GUID; COMMENT: Performed by Dr. Cruz COLONOSCOPY 12/09/2017 PROCEDURE: HISTORICAL COLONOSCOPY; COMMENT: negative UPPER GASTROINTESTINAL ENDOSCOPY 12/09/2017 PROCEDURE: CA UPPER GI ENDOSCOPY PERFORMED; COMMENT: negative FOOT [...] 2 Alive Well Son 1 Alive 1995; Massimo; karin perry Son 2 Alive 1998; Cosme; adam [...] Care Team (Late st Contact Info) Description 10/20/2025 9:00 AM EST Office Visit Obstetrics and Gynecology - [address] [phone] Kaelyn Patterson, [facility] [address] [place], [place] Health Maintenance Due Date Last Done Comments Hepatitis B Vaccines (1 of 3 - 19+ 3-dose series) 1989 Pneumococcal Vaccine: 50+ Years (1 of 1 - PCV) 2020 Zoster Vaccines (1 of 2) 2020 HIV Screening 08/23/2022 COVID-19 Vaccine (3 - 2024- season) 2025 08/20/2021, 07/30/2021 Influenza Vaccine (#1) [...] Signed Date: 05/29/2025 15:54 ET Workstation ID: [id number] Transcribed By: Self Edit Transcribed Date: 05/29/2025 [...] Bilateralscreening mammograms 05/23/2024 and 05/29/2025. Left breast netghcfgj95/23/2024. TECHNIQUE: Ultrasound survey evaluation of the upper [...] Signed Date: 05/29/2025 15:54 ET Workstation ID: [id number] Transcribed By: Self Edit Transcribed Date: 05/29/2025 15:54 ET us Radha SANCHEZ IMElisabeth US PROCEDURES Final Result * (ABNORMAL) MG [...] Additional left breast imaging recommended. Mammo Location: [facility], [address] [place] [address], [address], . -------- FINAL REPORT -------- Dictated By: Marjan Vegas Dictated Date: 05/31/2025 10:12 ET Assigned Physician: Marjan Vegas Reviewed and Electronically Signed By: Marjan Vegas Signed Date: 05/31/2025 10:21 ET Workstation ID: [id number] Transcribed By: Self Edit Transcribed Date: 05/31/2025 [...] Additional left breast imaging recommended. Mammo Location: [facility], [address] [place] [address], [id number], . -------- FINAL REPORT -------- Dictated By: Marjan Vegas Dictated Date: 05/31/2025 10:12 ET Assigned Physician: Marjan Vegas Reviewed and Electronically Signed By: Marjan Vegas Signed Date: 05/31/2025 10:21 ET Workstation ID: [id number] Transcribed By: Self Edit Transcribed Date: 05/31/2025 10:12 ET Starla Corea MD IMG BI PROCEDURES Sabina l Result * Cervical Cancer Screening: HPV (01/13/2024) Pathologist [facility] Cervical Cancer Screening: HPV Negative, Abstracted Historical Provider HEALTH MAINTENANCE Final Result * Hepatitis C Screening (10/05/2023) [facility] Hepatitis C Screening Abstracted Historical Provider HEALTH MAINTENANCE Final Result * (ABNORMAL) Lipid panel (10/05/2023) [facility] LDL/HDL Ratio 2 0 - 4 Triglycerides 55 0 - 150 mg/dL Cholesterol 209(A) 0 - 200 mg/dL HDL 114 >=40 mg/dL LDL Cholesterol 84 0 - 100 mg/dL Blood Venous blood specimen / Unknown Result [facility] Historical Provider LAB BLOOD ORDERABLES Sabina l Result * Colonoscopy (12/09/2017) [facility] Colonoscopy No Interpretation , Abstracted Anatomical Region Laterality Modality Other Historical Provider HEALTH MAINTENANCE Final Result from Last 3 Months or Most Recently Relevant to Health Maintenance Insurance [facility] Care Teams Software Clerk Relationship Specialty Start Date End Date Starla Corea MD [address] [place] [id number] PCP - General Internal Medicine 04/18/22
== END 2025-07-10 14:27 | disposition home or self-care (01) ==
PROVIDERS: PCP Family Medicine; Visit Provider Nurse Practitioner Family
DX: R55 Syncope and collapse (principal); F07.81 Postconcussional syndrome; G44.329 Chronic post-traumatic headache, not intractable; H81.10 Benign paroxysmal vertigo, unspecified ear
CPT/HCPCS: 99214